=== PATIENT | female | born 1935 | race Caucasian/White ===

== ENCOUNTER 2016-08-10 11:59 | Emergency (ER) | payer MEDICARE, OTHER ==
[~2016-08-10 11:59] MED LIST: ATEN50TA PO; ATOR40TA69 PO; BUPR300T52 PO; DOCU-41 PO; DONE5TAB30 PO; LOSA50TA37 PO; METF1000 PO; OMEP20CA11 PO; ONDA4TAB12 SL; OXYC1TAB24 PO; SERT50TA9 PO
--- NOTE | 2016-08-10 12:03 | ED.REPORT ---
HPI-General Illness Date of Service Aug 10, 2016 ED Provider: Dr. Rosen Patient is an 80 year old female with a history of dementia who reports to the ED via EMS from [facility] complaining of suicidal intent. Patient was belligerent, rude, and verbally inappropriate with staff. Patient does not know where she is or what is going on. Patient states that she wants, "to already" and for everyone to, "leave her alone." Patient wanted to take all her clothes off. Nursing Notes Stated Complaint: SUICIDAL COMMENTS Nursing Notes Reviewed: Yes Allergies: Coded Allergies: No Known Allergies (Verified , 09/25/03) Scheduled Atenolol (Atenolol) 50 Mg Tablet 50 MG PO QPM Atorvastatin Calcium (Atorvastatin Calcium) 40 Mg Tablet 40 MG PO DAILY Bupropion ER (Bupropion ER) 300 Mg Tab.er.24h 300 MG PO QAM Donepezil (Donepezil) 5 Mg Tablet 5 MG PO DAILY Losartan Potassium (Losartan Potassium) 50 Mg Tablet 50 MG PO QPM Metformin (Glucophage) 1,000 Mg Tablet 1,000 MG PO BID Omeprazole (Omeprazole) 20 Mg Capsule.dr 20 MG PO DAILY Quetiapine Fumarate (Seroquel) 25 Mg Tablet 25 MG PO BID 25mg in AM, 50 mg HS Sertraline HCl (Sertraline) 50 Mg Tablet 50 MG PO DAILY Scheduled PRN Docusate Sodium (Colace) 100 Mg Capsule 100 MG PO BID PRN PRN For Constipation Ondansetron ODT (Ondansetron ODT) 4 Mg Tab.rapdis 4 MG SL Q4H PRN PRN For Nausea /Vomiting oxyCODONE-Acetaminophen 5-325 mg (oxyCODONE-Acetaminophen 5-325 mg) 1 Each Tablet 1 TAB PO Q4H PRN PRN For Pain General Time Seen by MD: 12:15 Chief Complaint Other (suicidal intent) Hx Obtained From: Patient Arrived By: Walk-in Sudden in Onset?: Yes Onset Occurred: Just prior to arrival Symptom Duration: Since onset Severity: Current: No pain currently Severity: Maximum: No pain Past Medical History Past Medical History Dementia, bipolar Reports: Diabetes mellitus, Hypertension Past Surgical History Bilat hip replacement Family History noncontributory Smoking History Never Smoker Social History Alcohol Use: Denies alcohol use Drug Use: Denies drug use Other Social History: Good social support, Local resident Ambulatory Status Independent Review of Systems Unable to Obtain ROS Patient condition, Mental status Full Review of Systems Psychiatric: Reports: Suicidal ideation Physical Exam Vital Signs Vital Signs Date Time Temp Pulse Resp B/P Pulse Ox O2 Delivery O2 Flow Rate FiO2 08/10/16 15:11 36.8 74 18 122/59 99 Room Air Pt not cooperative with vital signs. Initial VS: Reviewed General/Constitutional: Awake Alertness: Positive: Confused not cooperative with physical exam. Head / Eyes: Atraumatic, Normocephalic, PERRL Respiratory / Chest: No respiratory distress Neurologic: Gait NL Mental Status: Positive: Confused Moves all extremitities. Interpretation & Diagnostics Lab Results Interpretation Result Diagram: 08/10/16 1245 08/10/16 1245 Test 08/10/16 12:45 08/10/16 15:27 White Blood Count 7.8th/mm3 (3.8-10.1) Red Blood Count 4.47mil/mm3 (3.90-5.20) Hemoglobin 11.0g/dL (12.0-15.6) Hematocrit 35.6% (35.0-46.0) Mean Corpuscular Volume 79.6fL (81-100) Mean Corpuscular Hemoglobin 24.6pg (27.0-35.0) Mean Corpuscular Hemoglobin Concent 30.9% (32.0-37.0) Red Cell Distribution Width 16.4% (12.3-15.4) Platelet Count 439bil/L (150-400) Neutrophils (%) (Auto) 71.5% (40-74) Lymphocytes (%) (Auto) 16.4% (14-46) Monocytes (%) (Auto) 8.4% (4-12) Eosinophils (%) (Auto) 2.4% (0-5) Basophils (%) (Auto) 0.9% (0-3) Sodium Level 140mEq/L (134-144) Potassium Level 4.4mEq/L (3.5-5.2) Chloride Level 99mEq/L (97-108) Carbon Dioxide Level 23mmol/L (18-29) Blood Urea Nitrogen 17mg/dL (8-27) Creatinine 0.89mg/dL (0.57-1.00) Estimat Glomerular Filtration Rate 87mL/min (>59) Glucose Level 162mg/dL (60-99) Calcium Level 9.6mg/dL (8.5-10.1) Total Bilirubin 0.4mg/dL (0.0-1.2) Aspartate Amino Transf (AST/SGOT) 19U/L (0-50) Alanine Aminotransferase (ALT/SGPT) 11U/L (0-32) Alkaline Phosphatase 127U/L (25-165) Total Protein 7.1g/dL (6.4-8.4) Albumin 4.2g/dL (3.4-5.0) Hold Rudd Top Tube Received (Received) Urine Color Straw (YELLOW) Urine Appearance Hazy (CLEAR,HAZY) Urine pH 6.0 (5.0-8.0) Urine Specific [place] 1.010 (1.003-1.035) Urine Protein Negativemg/dL (NEG,TRACE) Urine Glucose (UA) Negativemg/dL (NEGATIVE) Urine Ketones Negativemg/dL (NEGATIVE) Urine Occult Blood Negative (NEGATIVE) Urine Nitrite Negative (NEGATIVE) Urine Bilirubin Negative (NEGATIVE) Urine Urobilinogen Normalmg/dL (NORMAL) Urine Leukocyte Esterase Negative (NEGATIVE) Urine RBC 0-2/hpf (0-2) Urine WBC 0-5/hpf (0-5) Urine Epithelial Cells Few/hpf (NONE-MOD) Urine Crystals None seen (NONE SEEN) Urine Bacteria Many/hpf (NONE-FEW) Urine Hyaline Casts None/lpf (NONE) Urine Granular Casts None seen (NONE SEEN) Urine Waxy Casts None seen (NONE SEEN) Urine Red Blood Cell Casts None seen (NONE SEEN) Urine White Blood Cell Casts None seen (NONE SEEN) Urine Mucus None seen (None Seen) Urine Trichomonas None seen (NONE SEEN) Urine Yeast None (NONE SEEN) Urinalysis Comment None Urine Culture Reflexed Indicated X-Ray Chest Interpretation Chest Xray Interpretation: IMPRESSION: No acute cardiopulmonary findings. Dictated by: Roberta Humphrey M.D. on 08/10/2016 at 14:08 Approved by: Roberta Humphrey M.D. on 08/10/2016 at 14:08 View: Portable Interpretation / Wet Read by: Interpret - Radiologist NL X-Ray Chest Findings: No infiltrate, Normal lung markings, Normal heart size, Normal mediastinum, Normal great vessels, No fracture, Soft tissues normal , No acute disease, No sail sign, NL cardiothymic shadow Re-Eval/Medical Decision Med Decision/Clinical Course 80-year-old dementia patient with bipolar disorder arrives from a monitored care facility after outbursts with reported suicidal ideations. She is easily calmed and subdued after 2 mg of IM Haldol. She does overall seem depressed with a flat affect However after Haldol she is cooperative. Discussion is had with her primary care provider who is in agreement with discharging her back with increasing doses of Seroquel in an outpatient psychiatry referral. This seems reasonable as she does not seem at imminent risk of harm to herself or others given that she is in a monitored care setting. No obvious reversible causes for dementia can be found. Time of Eval: 13:20 Patient Status: Condition unchanged Re-Evaluation/Progress Note: Face to face evaluation. Decided to put pt in a soma bed for her own safety. Pt took her pants off and was rolling around on the floor. Pt at first refused to take seraquil that nurse gave her, then agreed to take it five minutes later. Consultation : Referral / Consult Name: Lenny Rand DO Consulted With: Primary care physician Call Returned at: 15:24 Diet Kitchen Cook: Agrees with plan Note: Dr. Rand ok with sending pt home and increasing seroquel to 25 mg in AM and 50 mg at night, consult spcy at facility. Counseled Regarding: Diagnosis, Lab results, Need for follow-up, When/why to return to ED Discharge & Departure Shift Change Sign-Out Patient Care Transferred: Yes Discussed Complaint(s): Yes Laboratory Evaluation: Lab evaluation discussed Imaging Studies: Imaging discussed Primary Impression: Delirium Disposition: Home Discharge Condition All VS Reviewed: Yes Condition: Stable Referrals: Corona Sandoval MD (PCP) [place] Attestation Portion of this note were transcribed by Vale Hampton and Melanie Shaffer. I, Dr. Rosen personally performed the history, physcial exam, and medical decision- making: I reviewed and confirmed the accuracy for the information in the transcribed note. Signed by: kevin Phillips, 08/03/16 0055 copies to: Corona Sandoval MD, Timothy S DO Aug 10, 2016 12:03 MELANIE SHAFFER Aug 10, 2016 12:33 Vale Hampton Aug 10, 2016 13:33
[2016-08-10] MEDS ORDERED: Haloperidol 5 mg/mL Inj IVPUSH ONE (12:35)
[2016-08-10 12:54] LABS: BASOPHILS % (AUTO) 0.9 % (0-3); EOSINOPHILS % (AUTO) 2.4 % (0-5); MONOCYTES % (AUTO) 8.4 % (4-12); Mean Corpuscular Hemoglobin 24.6 pg (27.0-35.0); Mean Corpuscular Volume 79.6 fL (81-100); NEUTROPHILS % (AUTO) 71.5 % (40-74); Platelet Count 439 bil/L (150-400)
--- NOTE | 2016-08-10 14:10 | DRSVH ---
PROCEDURE: X-RAY CHEST ONE VIEW, PORTABLE ([id number]) INDICATIONS: ALTERED LEVEL OF CONSCIOUSNESS TECHNIQUE: One view of the chest was acquired. COMPARISON: [facility], CR, XR CHEST 1VW (PORTABLE), 07/25/2016, 11:05. FINDINGS: Surgical changes and devices: None. Lungs and pleura: No pleural effusions or pneumothorax. Lungs are clear. Mediastinum: Mediastinal contours appear normal. Heart size is normal. Bones and chest wall: No suspicious bony lesions. Overlying soft tissues appear unremarkable. IMPRESSION: No acute cardiopulmonary findings. Dictated by: Roberta Humphrey M.D. on 08/10/2016 at 14:08 Approved by: Roberta Humphrey M.D. on 08/10/2016 at 14:08
[2016-08-10 15:11] VITALS: BP 122/59; PULSE 74; RESP 18; O2SAT 99
[2016-08-10] MEDS ORDERED: QUET25TA PO (15:39)
[2016-08-10 15:42] LABS: APPEARANCE,URINE HAZY (CLEAR,HAZY); COLOR,URINE STRAW (YELLOW); OCCULT BLOOD,URINE NEGATIVE (NEGATIVE); UROBILINOGEN,URINE NORMAL (NORMAL)
== END 2016-08-10 16:30 | disposition home or self-care (01) ==
LOC: EDUNIT# 11:59 → SED 11:59 → EDBD 11:59 → SED 16:30
DX: R41.0 Disorientation, unspecified (principal); I10 Essential (primary) hypertension; E11.9 Type 2 diabetes mellitus without complications; F03.90 Unspecified dementia, unspecified severity, without behavioral disturbance, psychotic disturbance, mood disturbance, and anxiety; F31.9 Bipolar disorder, unspecified; Z79.84 Long term (current) use of oral hypoglycemic drugs
CPT/HCPCS: 36415; 71010; 80053; 81000; 85025; 87086; 87088; 96374; 99284; J1630

== ENCOUNTER 2016-08-12 17:26 | Observation (INO) | payer MEDICARE, OTHER ==
[~2016-08-12] VITALS: Ht 157.5 cm; Wt 54.5 kg
[2016-08-12 17:26] VITALS: BP 137/51; PULSE 87; RESP 15; O2SAT 96
[~2016-08-12 17:26] MED LIST changes: +QUET25TA PO
--- NOTE | 2016-08-12 18:04 | ED.REPORT ---
HPI-Psychiatric Illness Date of Service Aug 12, 2016 ED Provider: Jitendra Johnson MD History of Present Illness: Patient sent in from [facility] with an affidavit indicating the patient tried to stab herself with a pen and said that she wanted to kill herself. Staff she had nothing else to live for. Pt is an 80 y/o female with history of Alzheimer's, dementia, cognitive deficit , UTI, possible bipolar disorder, depression, and anxiety who is brought to the ED via EMS due to suicidal ideation. Pt was sent from [facility] with in affidavit stating that she "wanted to stab herself with a pen and that she had nothing else to live for." Pt was hostile and suicidal ideation or dysuria. Pt was unaware of the date or her location, and did not remember her previous visit in the ED. She was seen two days ago for agitation and and escalation in Seroquel. She is unable to give a history. See affidavit for further history. Nursing Notes Stated Complaint: CONCERN Chief Complaint: Psychiatric Complaint Nursing Notes Reviewed: Yes (Gift Card Combo not reconciled) Allergies: Coded Allergies: No Known Allergies (Verified , 08/12/16) Scheduled Atenolol (Atenolol) 50 Mg Tablet 50 MG PO QPM Atorvastatin Calcium (Atorvastatin Calcium) 40 Mg Tablet 40 MG PO DAILY Bupropion ER (Bupropion ER) 300 Mg Tab.er.24h 300 MG PO QAM Donepezil (Donepezil) 5 Mg Tablet 5 MG PO DAILY Lactobacillus Combination No.4 (Probiotic) 1 Each Capsule 1 EACH PO DAILY Losartan Potassium (Losartan Potassium) 50 Mg Tablet 50 MG PO QPM Metformin (Glucophage) 1,000 Mg Tablet 1,000 MG PO BID Omeprazole (Omeprazole) 20 Mg Capsule.dr 20 MG PO DAILY Quetiapine Fumarate (Seroquel) 25 Mg Tablet 25 MG PO BID 25mg in AM, 50 mg HS Sertraline HCl (Sertraline) 50 Mg Tablet 50 MG PO DAILY Scheduled PRN Docusate Sodium (Colace) 100 Mg Capsule 100 MG PO BID PRN PRN For Constipation Ondansetron ODT (Ondansetron ODT) 4 Mg Tab.rapdis 4 MG SL Q4H PRN PRN For Nausea /Vomiting oxyCODONE-Acetaminophen 5-325 mg (oxyCODONE-Acetaminophen 5-325 mg) 1 Each Tablet 1 TAB PO Q4H PRN PRN For Pain General Time Seen by MD: 17:43 Chief Complaint Suicidal ideation Hx Obtained From: Patient, EMS Arrived By: Ambulance Onset Occurred: Onset unknown Symptom Duration: Duration unknown Recent Healthcare: Recent doctor visit, Recent hospitalization Similar Sx Previous: Yes Risk-Psychiatric Illness Suicide Risk Stratification Suicide Risk Factors - Adult: No: Access to firearms, Alcohol use, Close associate suicide RF Statements: Risk factors reviewed (not predictive, unable to review 2nd to dementia, unknown if prior psych admit or prior SI) Past Medical History Past Medical History Notes: Admit July 10- for acute delirium & Left hip fracture, UTI > 100,000 Escherichia coli, pansensitive - treated, repeat UA 08/10/16 mixed kelsey Seen in ED 08/10/2016 for agitation and SI, seroquel increased Past Medical History Dementia bipolar (details unclear - on seroquel) Reports: Diabetes mellitus, Hypertension Past Surgical History Bilat hip replacement Family History noncontributory Smoking History Never Smoker Social History Resides at [facility] form dated July 29 2016 indicates DNR and COMFORT CARE Alcohol Use: Denies alcohol use Drug Use: Denies drug use Other Social History: Good social support, Local resident Ambulatory Status Independent Review of Systems Unable to Obtain ROS Mental status Physical Exam Initial Vital Signs Vital Signs (First) Date Time Temp Pulse Resp B/P Pulse Ox O2 Delivery O2 Flow Rate FiO2 08/12/16 17:26 36.9 87 15 137/51 96 Room Air Initial VS: Reviewed, Vital signs normal Head / Eyes: Atraumatic, Normocephalic, PERRL ENT: Mucous membranes moist, Conjunctiva normal, No scleral icterus Neck: Supple, Non-tender, Full range of motion Respiratory: Breath sounds normal, Clear to auscultation, No respiratory distress Cardiovascular: Regular rate & rhythm, Heart sounds normal, Intact distal pulses Extremities: Vascular intact, Neuro intact, No swelling, No tenderness Skin: Warm, Dry, No cyanosis General/Constitutional: Awake, Alert does not appear to be in pain or discomfort no signs of current trauma Neurologic: Speech NL Mental Status: Positive: Disoriented to place, Disoriented to time Abnormal Mood/Affect: Positive: Anxious, Irritable, Pressured speech (with disorganization) Abnormal Thinking / Perception: Positive: Confused (acuity unclear, ho dementia. Can cite , but not current date - baseline unknonw), Insight abnormal, Judgment abnormal, Suicidal, with plan (according to affadivit, does not endorse SI in ED), Negative: Hallucinations, auditory, Hallucinations, tactile, Hallucinations, visual Unable to Evaluate: Positive: Uncooperative (escalates during exam and becomes less cooperative and does not want to converse ("I want to go find my son at [facility]")) Pt is energetic, upright, demented, agitated, patient disorganized with mildly pressured speech Head / Eyes: Atraumatic (no signs of trauma), Normocephalic, PERRL, EOMI, No nystagmus, No periorbital swelling ENT: Atraumatic, Airway patent Respiratory / Chest: Atraumatic, Breath sounds NL, Breath sounds = bilat, No respiratory distress Cardiovascular: Heart rate NL, Regular rhythm, Heart sounds NL Heart Rate / Rhythm: Negative: Tachycardia Lower Ext Edema: Negative: Bilateral 1+ Abdomen: Atraumatic, Soft, Non-tender, No guarding, No rebound Skin: Atraumatic, Color NL, No rash Additional Physical Exam: Patient moves hips without overt clinically evident discomfort (has known L hip fx being managed non-operatively) Lower Extremity / Pelvis / MS: Inspection NL, Non-tender, No erythema Interpretation & Diagnostics Lab Results Interpretation Result Diagram: 08/12/16 18208/12/16 1826 Test 08/12/16 18:26 08/12/16 18:40 White Blood Count 7.4th/mm3 (3.8-10.1) Red Blood Count 4.22mil/mm3 (3.90-5.20) Hemoglobin 10.1g/dL (12.0-15.6) Hematocrit 34.1% (35.0-46.0) Mean Corpuscular Volume 80.8fL (81-100) Mean Corpuscular Hemoglobin 23.9pg (27.0-35.0) Mean Corpuscular Hemoglobin Concent 29.6% (32.0-37.0) Red Cell Distribution Width 16.1% (12.3-15.4) Platelet Count 367bil/L (150-400) Neutrophils (%) (Auto) 70.4% (40-74) Lymphocytes (%) (Auto) 17.8% (14-46) Monocytes (%) (Auto) 7.9% (4-12) Eosinophils (%) (Auto) 3.4% (0-5) Basophils (%) (Auto) 0.4% (0-3) Sodium Level 137mEq/L (134-144) Potassium Level 4.4mEq/L (3.5-5.2) Chloride Level 98mEq/L (97-108) Carbon Dioxide Level 23mmol/L (18-29) Blood Urea Nitrogen 25mg/dL (8-27) Creatinine 0.82mg/dL (0.57-1.00) Estimat Glomerular Filtration Rate 96mL/min (>59) Glucose Level 240mg/dL (60-99) Calcium Level 9.4mg/dL (8.5-10.1) Total Bilirubin 0.2mg/dL (0.0-1.2) Aspartate Amino Transf (AST/SGOT) 13U/L (0-50) Alanine Aminotransferase (ALT/SGPT) 10U/L (0-32) Alkaline Phosphatase 108U/L (25-165) Total Protein 6.9g/dL (6.4-8.4) Albumin 3.8g/dL (3.4-5.0) Thyroid Stimulating Hormone (TSH) 0.540uIU/mL (0.450-4.500) Hold Rudd Top Tube Received (Received) Alcohol, Quantitative < 10mg/dL (0-10) Urine Color Yellow (YELLOW) Urine Appearance Clear (CLEAR,HAZY) Urine pH 5.5 (5.0-8.0) Urine Specific [place] 1.010 (1.003-1.035) Urine Protein Negativemg/dL (NEG,TRACE) Urine Glucose (UA) Negativemg/dL (NEGATIVE) Urine Ketones Negativemg/dL (NEGATIVE) Urine Occult Blood Negative (NEGATIVE) Urine Nitrite Negative (NEGATIVE) Urine Bilirubin Negative (NEGATIVE) Urine Urobilinogen Normalmg/dL (NORMAL) Urine Leukocyte Esterase Negative (NEGATIVE) Urine RBC 0-2/hpf (0-2) Urine WBC 0-5/hpf (0-5) Urine Epithelial Cells Few/hpf (NONE-MOD) Urine Crystals None seen (NONE SEEN) Urine Bacteria None/hpf (NONE-FEW) Urine Hyaline Casts None/lpf (NONE) Urine Granular Casts None seen (NONE SEEN) Urine Waxy Casts None seen (NONE SEEN) Urine Red Blood Cell Casts None seen (NONE SEEN) Urine White Blood Cell Casts None seen (NONE SEEN) Urine Mucus None seen (None Seen) Urine Trichomonas None seen (NONE SEEN) Urine Yeast None (NONE SEEN) Urinalysis Comment None Urine Culture Reflexed Not indicated Lab Results Interpretation: CBC and normal CMP mild hyperglycemia EtOH negative TSH normal UA negative Culture of the urine from 2 days ago was mixed kelsey, no definite pathogens Brain CT -07/23/16 Re-Eval/Medical Decision Med Decision/Clinical Course This is an 80-year-old female [facility] with increased agitation, and specific concern suicidal ideation and danger to self with plan stab herself. Please see this a SNF affidavit. This is a patient who reportedly has a history of bipolar illness, details unclear. She will recently resided in a assisted living facility, but had a fall and was admitted 2 weeks ago for a left periprosthetic hip fracture that did not R surgical intervention, but for which the patient required placement given her needs for physical therapy. At the same time, the patient had an Escherichia coli UTI, pansensitive that was treated. The patient reports that her into the emergency department 2 days ago, with agitation, suicidal ideation. Repeat workup was performed, there was a concern for delirium-lab work was normal, UA was nonspecific and culture revealed only mixed kelsey with no clear pathogens. There are no of trauma or new injury. The [facility] after extensive difficulties by report, is a facility was not comfortable taking the patient back. The PCP was contacted, and the plan was to increase the patient' s Seroquel. Apparently today the patient was more agitated, she attempted this allegedly talk about stabbing herself and wanted to kill herself, and was sent back in. The patient when I go to examine her does not remember any of this. She is initially fairly calm, and the tech who recognized from 2 days ago said she was better now, that she was a few days ago. The patient is alert, answering questions-but is hyperactive, is focused on getting to [facility]-even though she is already at the hospital and does not seem to have any insight that she is here, despite the fact that she will reiterate that she is at the hospital after I tell her current location. She is focused on finding her son, who she claims is hospitalized-but does not know why. She has no insight, no judgment. Her speech is slightly pressured. She is disorganized . I do not get any component that sounds like a hallucination. However the patient's also restless with me, and will not fully cooperate and gets angry at me and escalates restlessness, although she is able to be talked down. She hasno visible signs of trauma. She moves comfortably, she does not appear toxic or ill. She has no focal deficits. Lungs are clear, she is no respiratory findings. Moves her hip without clinically apparent discomfort. And in fact, she gets agitated restless enough that she could try to get out of the gurney and go places-so she ultimately required placement in a somewhat bed. She then escalated to the point of requiring Haldol, as Haldol worked well on her previous visit 2 days ago and worked again today. Repeat labs and urine were obtained and were without marker of medical pathology. The patient is already had a CT scan recently's, she has no focal deficits, I am not finding a clear indication that repeat CT imaging is indicated. The situation is even slightly more, could not fact that the patient has a POLST form indicates a DO NOT RESUSCITATE and comfort care. The patient with agitation, intermittent suicidal ideation, [id number] visits to the emergency department, without an overt clear medical cause. She poorly has a history of bipolar, but is difficult to evaluate given her dementia. she does have slightly pressured speech and some disorganization, so a manic bipolar component is possible. She is already had a medication adjustment but is having worsening symptoms. A DCR evaluation, came by the fact that the patient has just in recent weeks broken her hip, requires physical therapy management (patient is to be protected weightbearing utilizing a toe-touch weightbearing program) while she does not have an acute medical issue today, she has a subacute medical issue complicating any potential psychiatric care. For this reason I think the patient is best served by admission to the medical service, with a consultation to the psychiatrist in the a.m. for further assistance in management. Case has been discussed with the hospitalist and the patient accepted. Source of Hx: Old records Consultation : Referral / Consult Name: Shiv Ford MD Consulted With: Hospitalist Call Returned at: 20:37 Biostatistics Manager: Accepts admit Note: Spoke with Dr. Ford, hospitalist, regarding pt's case. Dr. Ford agrees with the evaluation and agrees to accept the pt. Differential Diagnosis: Positive: Suicidal, Negative: Alcohol abuse, Homicidal, Personality disorder, Polysubstance abuse , Schizophrenia, Substance abuse Counseled Regarding: Diagnosis, Lab results, Need for admission Discharge & Departure Impression: Primary Impression: Agitation Additional Impression: Suicidal ideation Disposition: ADMITTED TO HOSPITAL Discharge Condition All VS Reviewed: Yes Condition: Stable Referrals: Corona Sandoval MD (PCP) Scribe Attestation Portions of this note were transcribed by Florian Medeiros and Júnior Dave I , Dr. Johnson personally performed the history, physical exam and medical decision-making; I reviewed and confirmed the accuracy of the information in the transcribed note. Signed by: Júnior Dave and Shun Post, and 0049. copies to: Corona Sandoval MD, Matthew F MD Aug 12, 2016 18:04 Florian Medeiros Aug 12, 2016 23:04 JÚNIOR DAVE Aug 13, 2016 00:49
[2016-08-12 18:53] LABS: BASOPHILS % (AUTO) 0.4 % (0-3); EOSINOPHILS % (AUTO) 3.4 % (0-5); MONOCYTES % (AUTO) 7.9 % (4-12); Mean Corpuscular Hemoglobin 23.9 pg (27.0-35.0); Mean Corpuscular Volume 80.8 fL (81-100); NEUTROPHILS % (AUTO) 70.4 % (40-74); Platelet Count 367 bil/L (150-400)
[2016-08-12] MEDS ORDERED: Haloperidol 5 mg/mL Inj IM ONE (19:30)
[2016-08-12 20:05] LABS: APPEARANCE,URINE CLEAR (CLEAR,HAZY); COLOR,URINE YELLOW (YELLOW); OCCULT BLOOD,URINE NEGATIVE (NEGATIVE); PH,URINE 5.5 (5.0-8.0); UROBILINOGEN,URINE NORMAL (NORMAL)
[2016-08-12] MEDS ORDERED: LACT1CAP67 PO (22:01)
[2016-08-12] MEDS ORDERED: Ondansetron 2 mg/mL 2 mL Inj IVPUSH PRN (22:55)
[2016-08-12] MEDS ORDERED: Alum-Mag Hydrox-Simeth 30 mL Suspension PO PRN (22:55)
--- NOTE | 2016-08-13 00:17 | NUR ---
Admit Pt arrived to [facility] w/ S Lasha SANZ at 2345 in soma bed. Pt calm, pleasant, responding appropriately and communicating well. Pt oriented to self and place, not agitated in any way. Pt presenting with short term memory loss, oriented to room, immediately forgotten. Overall pt is calm and pleasantly confused at this time.
[2016-08-13 00:33] VITALS: BP 135/72; PULSE 95; RESP 18; O2SAT 93
--- NOTE | 2016-08-13 00:38 | PCM.HPMED ---
Subjective Date of Service Aug 12, 2016 Primary Provider: Admitting Physician: Primary Care Physician: Corona Sandoval MD Attending Physician: Chief Complaint: agitation with threat of self harm and suicidal ideation History of Present Illness: 80-year-old female with past medical history remarkable for dementia and recent left hip fracture presents with ongoing delirium and threats of self injury and suicidal ideation. The patient was brought in from [facility] with a report of agitation or the patient attempted to stab herself with a pin and threats of suicide stating she had "nothing left to live for". Upon meeting the patient she states that she does not remember any events at [facility] and denies explicitly trying to injure herself stating that she is a "Adventist and her god would not like that". The patient denies any suicidal ideation or thoughts of harming herself or others. The patient denies any trouble with coordination, headaches, changes in vision, or ongoing pain at this time. She is unsure of the medications that she is currently taking. She has 2 sons in the area Lobo and Bridger, and states that Lobo has the DURABLE POWER OF FACIALIST but that we may speak with either one of the sons. The patient in late June broke her left hip, after ground level fall, and this injury was recommended to be followed up without surgical intervention she is discharged on 07/29/2016 after treating a urinary tract infection. Notes from that hospitalization describe ongoing delirium on top of previous diagnosis of chronic ongoing dementia, and that the delirium seemed to resolve before discharge. The patient is on medications for dementia including Donepezil, as well as medications for depression including sertraline and bupropion, and medications for agitation including Seroquel twice a day. Reports are that she was unable to be placed in a geriatric psychiatric unit due to her left hip fracture and was instead discharged to [facility]. She was last seen in the [facility] ED on August 10 with altered mental status. Review of Systems: Comprehensive review of systems was attempted and all are negative except for what is included in the history of present illness Allergies Coded Allergies: No Known Allergies (Verified , 08/12/16) Home Medications Atenolol 50 mg every evening Atorvastatin 40 mg daily Bupropion extended release 300 mg daily Donepezil 5 mg daily Losartan 50 mg every evening Metformin 1000 milligrams twice a day Omeprazole 20 mg daily Quetiapine 25 mg twice a day Sertraline 50 mg daily Lactobacillus probiotic Docusate sodium 100mg PRN Ondansetron 4mg PRN Percocet 5-325 mg PRN PMH Diabetes mellitus Hypertension Hyperlipidemia Gastroesophageal reflux disease Dementia Bipolar Admitted July 25 for acute delirium with left hip fracture without surgical intervention and urinary tract infection treated Surgical History Bilateral hip replacement Family History Mother of emphysema Father of emphysema Social History 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 Obama and President Ralf after coaxing. 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 flexion, on flexion of the left hip patient initially states that there was pain and then when addressed immediately afterwards stated that there is no pain and was unable to place a finger on the site of pain Eyes: PERRLA, extraocular motion appears intact however not fluid and when directly testing patient's EOM patient did not perform left inferior eye movement however this motion was seen on tracking, pale conjunctiva HENT: MMM, without central cyanosis, top dentures in place, Neck: trachea midline, no thyromegaly noted CV: RRR, +s1/s2, no s3/s4, soft systolic murmur noted on left sternal boarder, no rubs or gallops Lungs: CTAB, no wheezing rales or rhonchi Abdomen: Normoactive bowel sounds, tympanic to percussion, no organomegally Ext: Pulses intact at radial and dorsalis pedis, no cyanosis clubbing or edema : no perkins in place, adult disposable underwear in place Lab and Diagnostics Result Diagram: 1/14182508/12/161825 Microbiology UA performed in ED was negative for infection X-Rays, CTs and MRIs PROCEDURE: X-RAY CHEST ONE VIEW, PORTABLE ([id number]) IMPRESSION: No acute cardiopulmonary findings. Dictated by: Roberta Humphrey M.D. on 08/10/2016 at 14:08 Approved by: Roberta Humphrey M.D. on 08/10/2016 at 14:08 Assessment & Plan 80-year-old female with past medical history remarkable for dementia and recent left hip fracture presents with ongoing delirium and threats of self injury and suicidal ideation. 1. Agitation/Suicidal Ideation, acute - Patient has a history of dementia on Donepezil, Seroquel, sertraline, and buproprion ER - During last hospitalization July 25-2015 the patient was described as having ongoing agitation and delirium, and report that patient was attempted to be placed in geriatric psychiatric unit however due to hip fracture was unable to be placed - medical team should contact Psychiatry tomorrow for evaluation - received Haldol 2mg IM in ED, we will keep Haldol 1-2mg IM available when necessary for agitation overnight, the patient seems to tolerate Haldol well currently - will avoid benzodiazepines for agitation in the elderly - Continue outpatient medication tomorrow 2. left nondisplaced periprosthetic proximal femur fracture, present prior to admission, stable - per ortho reports from last hospitalization "Nonoperative treatment involving protected weightbearing utilizing a toe-touch weightbearing program for approximately six weeks will likely yield a good outcome." - patient denies pain with active non weightbearing movement when last checked - Percocet 5-325mg available PRN - PT consulted for evaluation 3. Diabetes mellitus type 2, chronic - Patient was treated as an outpatient with 1000 mg by mouth twice a day - Patient to be placed on a correction scale subcutaneous insulin while in hospital - it data architect consulted from ED, likely start diabetic diet in AM 4. Hypertension, chronic - Atenolol 50 mg at night - Losartan 50mg at night - will hold medication tonight and restart medication tomorrow currently scheduled in the PM, may need to restart earlier depending on vitals 5. Hyperlipidemia, chronic - Atorvastatin 40 mg daily - We will hold medication tonight and restart medication tomorrow 6. GERD, chronic - Omeprazole 20 mg daily - Pepcid 20mg BID to start tomorrow - We will hold medication and start ranitidine tomorrow, some studies show PPIs increased risk of delirium in elderly 7. anemia, likely chronic - Low MCV likely due to iron deficiency - anemia panel ordered for AM According to POLST form dated July 29, 2017 patient is DO NOT RESUSCITATE and comfort care measures only DPOA is jorge alberto Diamond, patient gives consent for discussion Bridger. Disposition: Patient is admitted for observation status with likely stay less than to midnight, barriers to discharge include placement in geriatric psychiatric facility given left hip fracture, PT consulted to give placement recommendations. GI Prophylaxis: H2 rosalio VTE Prophylaxis: SCDs Resuscitation Status: DNR/DNI:Do Not Resuscitate/Intubate Attending Statement The patient was seen and examined together with Dr. Gallagher on 08/12 and I agree with the history, exam and plan as outlined in the note above. ELISA GALLAGHER DO Aug 12, 2016 23:23 Shiv Ford MD Aug 13, 2016 06:08
[2016-08-13] MEDS ORDERED: Glucose 40% Oral Gel 15 Gm Tube PO PRN (00:50)
[2016-08-13] MEDS: oxyCODONE-Acetamin 5-325 mg Tablet PO PRN ×4 (03:01→20:01)
--- NOTE | 2016-08-13 03:52 | NUR ---
Assessment refusal / Male Caregiver Reported from ED that patient refused care from male staff. Pt was compliant with assessment other than skin assessment. Per MARCELLUS kay no apparent skin issues noted when toileting. Pt has good strength and moves self very well, good edna score.
[2016-08-13 04:33] VITALS: BP 127/65; PULSE 92; RESP 16; O2SAT 95
[2016-08-13 08:07] VITALS: BP 135/57; PULSE 84; RESP 16; O2SAT 94
[2016-08-13] MEDS: buPROPion XL 300 mg ER24 Tablet PO SCH (08:23)
[2016-08-13] MEDS: Insulin LISPRO 300 Unit/3 mL Inj SUBQ SCH ×4 (09:21→22:00)
--- NOTE | 2016-08-13 11:06 | NUR ---
Evaluation completed. Please go to "Notes" then click on "Assessments and Notes" (bottom left corner of screen). Then select appropriate discipline tab on top of screen.
--- NOTE | 2016-08-13 14:45 | NUR ---
Observation information explained over phone to pt's son Lobo. Brochures left at bedside. I provided Candi GARCIA's phone number since he had questions about her placement and if facility was going to accept her back.
--- NOTE | 2016-08-13 15:04 | PCM.PNMED ---
Subjective Date of Service Aug 13, 2016 Subjective She is confused but pleasant, lying in a SOMA bed this morning. She says the be makes her feel crowded. She has no left hip pain. Exam Vital Signs Vital Sign - Last Date Time Temp Pulse Resp B/P Pulse Ox O2 Delivery O2 Flow Rate FiO2 08/13/16 04:33 36.8 92 16 127/65 95 Room Air Exam Confused and disoriented Pleasant and has no memory of admission events No signs of self harm or intent Heart: RRR no murmur Lungs: CTAB Ext: No ankle edema. Normal ROM of left hip without tenderness IVs and Medications Medications Reviewed: Medications were reviewed in detail Lab and Diagnostics Result Diagram: 08/12/16182508/12/161825 Microbiology UA performed in ED was negative for infection X-Rays, CTs and MRIs PROCEDURE: X-RAY CHEST ONE VIEW, PORTABLE ([id number]) IMPRESSION: No acute cardiopulmonary findings. Dictated by: Roberta Humphrey M.D. on 08/10/2016 at 14:08 Approved by: Roberta Humphrey M.D. on 08/10/2016 at 14:08 Assessment & Plan 80-year-old female with past medical history remarkable for dementia and recent left hip fracture presented yesterday with ongoing delirium and threats of self injury and suicidal ideation. 1. Agitation/Suicidal Ideation, acute - Patient has a history of dementia on Donepezil, Seroquel, sertraline, and buproprion ER - During last hospitalization July 25-2015 the patient was described as having ongoing agitation and delirium, and report that patient was attempted to be placed in geriatric psychiatric unit however due to hip fracture was unable to be placed - No need for Psych assistance so far. - received Haldol 2mg IM in ED, we will keep Haldol 1-2mg IM available when necessary for agitation overnight, the patient seems to tolerate Haldol well currently - will avoid benzodiazepines for agitation in the elderly - Continue outpatient medication tomorrow 2. left nondisplaced periprosthetic proximal femur fracture, present prior to admission, stable - per ortho reports from last hospitalization "Nonoperative treatment involving protected weightbearing utilizing a toe-touch weightbearing program for approximately six weeks will likely yield a good outcome." - patient denies pain with active non weightbearing movement when last checked - Percocet 5-325mg available PRN - PT consulted for evaluation 3. Diabetes mellitus type 2, chronic - Patient was treated as an outpatient with Metformin 1000 mg by mouth twice a day - Patient to be placed on a correction scale subcutaneous insulin while in hospital - software integration developer consulted from ED, likely start diabetic diet in AM, and resume Metformin 4. Hypertension, chronic - Atenolol 50 mg at night - Losartan 50mg at night 5. Hyperlipidemia, chronic - Atorvastatin 40 mg daily 6. GERD, chronic - Omeprazole 20 mg daily - Pepcid 20mg BID to start tomorrow - We will hold medication and start ranitidine tomorrow, some studies show PPIs increased risk of delirium in elderly 7. anemia, likely chronic - Low MCV likely due to iron level of 31 with 11% saturation According to POLST form dated July 29, 2017 patient is DO NOT RESUSCITATE and comfort care measures only DPOA is jorge alberto Diamond, patient gives consent for discussion Bridger. Disposition: Patient is admitted for observation status with likely stay less than two midnights, barriers to discharge include placement in geriatric psychiatric facility given left hip fracture, PT consulted to give placement recommendations. The most likely outcome is a return to [facility] soon. She will be taken out of the [facility] bed today. No sitter needed so far. GI Prophylaxis: H2 rosalio VTE Prophylaxis: SCDs Resuscitation Status: DNR/DNI:Do Not Resuscitate/Intubate Jennifer Alonso MD Aug 13, 2016 07:33
--- NOTE | 2016-08-13 15:25 | NUR ---
Behavior Pt became increasingly anxious, restless, and agitated as the day went on. Pt was very focused on calling her son and telling him to "go to hell". She repeatedly attempted to get out of bed without assistance. She was attempting to call her son repeatedly. She believed that she was being "incarcerated". Frequent reorientation by staff did not appear helpful. Doctor was paged and an order for PO haldol was obtained. Addendum: 08/13/16 at 1747 by NINA HART RN 1mg of PO haldol was given at 1545 with good effect. Pt's mood improved and she was able to be redirected, also less restless. Will continue to monitor.
--- NOTE | 2016-08-13 15:36 | CONS ---
[address] [address] CONSULTATION REPORT PATIENT: KUMAR BARBER : 1935 MR#: [id number] ADMIT: 08/12/2016 JOB ID: [id number] DATE OF SERVICE: 08/13/2016 IDENTIFICATION: The patient is an 80-year-old white female. She has two grown sons, Lobo and Brigder; Lobo is the power of workers compensation attorney. She has been staying at [facility] since having hip fracture repair. Her home is in [place]. REASON FOR ADMISSION: Client transferred from [facility] to the ER for acute agitation and making suicidal statements that she wanted to stab herself. HISTORY OF PRESENT ILLNESS: I met with the patient for a 45 minute evaluation and reviewed course and records kept by [facility]. I was consulted in reference to client's suicidal statements and recommendations for medication management. Client was calm and had no memory of either agitation or suicidal statements. She stated that she was hoping that her medications, Wellbutrin and Zoloft, could be discontinued as she states they make her anxious. At present she was denying all symptoms. It is unclear what the recent trigger was for the presenting problems. She was given 2 mg of Haldol in the emergency department. Client currently has no signs of emotional liability. Her reality testing is intact and she is showing relatively good judgment and insight. She has moderate cognitive deficits, with severe impairment in short-term memory. Client denied psychiatric review of systems for depression, janessa, psychosis, anxiety, trauma, or substance abuse. Client has been treated with a combination of four different medications; Wellbutrin, Zoloft, Seroquel, and donepezil. She is complaining of anxiety and agitation on this combination. PAST MEDICAL HISTORY: MEDICATIONS: 1. Wellbutrin ER 300 mg q.a.m. 2. Donepezil 5 mg daily. 3. Seroquel 25 b.i.d. 4. Zoloft 50 daily. 5. Metformin. 6. Losartan. ALLERGIES: None. ILLNESSES: Diabetes mellitus, hypertension, left hip fracture. FAMILY MEDICAL HISTORY: Noncontributory. PAST PSYCHIATRIC HISTORY: Bipolar disorder. PSYCHOSOCIAL: Born in [place], [place] and raised in [place]. She states she went through high school to her senior year and got . TRAUMA: Client denies. DRUG AND ALCOHOL: Client denies. LETHALITY: Client denies previous suicide attempts. RELATIONSHIP HISTORY: Client states she was at 18 and was for 52 years. She stated her three years ago. QUAKER: Freddie centered, Bible based. LEGAL HISTORY: None. VITAL SIGNS: 135/57, pulse 84, respirations 16, afebrile. PHYSICAL EXAMINATION: Well hydrated and well developed, in no acute distress. Lying comfortably in her hospital bed. LABORATORY: CBC, liver, electrolytes, thyroid, and UA all normal except for glucose elevated at 246. Recent CT exam was essentially normal. MENTAL STATUS EXAMINATION: Client neatly and stylishly dressed. Good eye contact. Calm and cooperative. She was very animated, relaxed, and easy to engage. Her speech was normal rate and rhythm. Mood was euthymic. Affect congruent. Normal intensity. Thought process: Client had a difficult time relating a coherent history due to significant gaps in memory. However, she was generally logical and spontaneous, and able to appreciate both simple and complex abstractions. No signs of psychosis. Thought content: Significant for themes of wanting to take care of herself and know what medical decisions are being made. Denied suicidal ideation, plan, or intent. Denied psychotic symptoms. Client was alert and oriented to person and place, but not to date. Significant impairment in immediate and short-term memory. Remote memory intact. Attention and concentration relatively normal. Client had a difficult time with serial subtractions of 100 by 3. Insight and judgment at this time is fair; per recent history has been poor over the past 24 hours. Impulse control: Highly contained. Again, per reports, has been poor over the past 24 hours. Reality testing intact. Competence to handle current stressors was appropriate. IMPRESSION: The patient is an 80-year-old white female who has been three years. She describes feeling lonesome but denies other psychiatric review of systems for depression or suicidal ideation. She is concerned about her Wellbutrin and Zoloft, feeling that they make her too nervous. She does not remember why she is on Seroquel. She is basically asking to be taken off all medications at this time. The client does have several medical problems but they appeared to be well managed. It is hard to say what happened at [facility] last time but it sounds like this was more of a sundowning episode that escalated to threats of suicide. DIAGNOSIS: [place] I: 1. Neurocognitive disorder, moderate. 2. Depression, unspecified. [place] II: Deferred. [place] III: Diabetes mellitus, hypertension, left hip fracture in June. [place] IV: Moderate. [place] V: Current Global Assessment of Functioning equal to 40. PLAN: There are different theories on how to approach patients with depression, dementia, and psychosis. One approach is to use both a neuroleptic and an antiparkinson drug and low-dose benzodiazepines and anticholinergics. I would be inclined to try to minimize the medication load by changing Seroquel to 25 h.s., dropping the Wellbutrin ER to 225 per day, discontinuing p.r.n. Haldol, and using low-dose Xanax 0.25 q.4 h. as a p.r.n. level for agitation and anxiety. The patient will likely respond most significantly to a sense of safety, structure, and active adult engagement. It is possible that she is having agitation due to the combination of Wellbutrin and Zoloft. It is also possible she is having agitation due to not being in her normal home environment. Today is my final day. I will pass off to Dr. Roldan, to have him follow up. Thank you for a very interesting consult with a delightful patient.
[2016-08-13 15:47] VITALS: BP 129/67; PULSE 85; RESP 16; O2SAT 96
--- NOTE | 2016-08-13 15:52 | NUR ---
Social Work Note: Mental Health Evaluation Patient Name/Info: Kristen Klein is a 80 year old female under observation for dementia, left hip fracture and suicidal ideation. YOKO met with pt at bedside for mental health evaluation, SW role explained. Due to pt diagnosis of dementia, YOKO also contacted pt son Lobo and RN at [facility] for further information and hx. Reason for Hospital Visit: Pt was brought in after making suicidal statements at her detention facility and attempting to stab herself with a pen per ED documentation. Per ED summary notes, pt continued to express suicidal ideation and was agitated. Pt was recently in the ED two days ago where her prescribed dosage of Seroquel was increased after coordination with her PCP and she was discharged back to her detention facility [facility]. YOKO spoke with UMU Coombs at [facility] who explained pt behavior was getting worse over the past five days, however she became more aggressive before lunch yesterday morning (08/12/2016). [facility] RN explained pt began to grab other residents, twisting their arms and not letting go. Pt was making statements such as "I want to , she had a pen and was going to stab herself in the arm." UMU Coombs reports that pt was requesting to see her son and when pt son Lobo arrived at the facility, the moment she saw him she went off stating that he was going to kill her. UMU Coombs reports that when pt has an episodes similar to this, "she wont eat, drink take any medications and becomes paranoid we are trying to poison her." YOKO spoke to pt son Lobo ( [phone]) who explained that pt making suicidal statements Is not new and happens periodically and then she forgets she makes the statements shortly after. However, pt has been making threats toward her son and pt son feels like he is a trigger toward her and explained if [facility] does not accept her back, he is unable to take her into his own home due to his own safety concerns for himself and for the pt. Pt explained he is concerned for pt safety but is unsure if he believes she should be psychiatrically hospitalized. Current Mental Status/ADL: YOKO met with pt at bedside. Pt was lying in bed resting. Pt explained that she was "very tired, from doing nothing". Pt is oriented to self and place but was unsure about the date or the time. Pt has no recollection of being at a detention facility and believes she lives in [place] alone and that is where she was at prior to this hospitalization. Pt questioned why she was in the hospital, when asked if she had any idea of why she was in the hospital, pt explained she had a hip fracture. Pt denied any current suicidal ideation or thoughts of harming herself or others. When asked if pt remembered making any suicidal statements or trying to harm herself with a pen, pt explained "I don't have any idea to hurt myself, I don't know who gets that idea." Pt reports "I am in a good mood, I feel fine". Pt reports a good appetite, referencing having just had "a very good lunch". Pt continued to report feeling very tired throughout the evaluation. Pt was appropriate in speech and eye contact. Despite reporting feelings of tiredness, pt seemed very energetic and requested to get out of bed and walk around on multiple occasions. Psychiatric History/Treatment: SW contacted the [facility] for [facility]. [facility] explained they have no record of pt. Pt has been seen by ED RADIATION OFFICER last year for suicidal ideation after an overdose of her medications. Pt denied current suicidal ideation at time of interview. Per [facility] Jessica Camarena RN and pt son, pt occasionally makes statements of wanting to or harm or self and others, but after calming down, does not recall any of the statements and denies any suicidal ideation. Pt otherwise has not had any inpt psychiatric hospitalizations. Pt psychiatric medications have been managed by her outpt PCP. Chemical Dependency History/Treatment/Tox Screen: N/A Legal History/Assaultive Behavior/Violence History: N/A Suicide Risk/Risk Precautions/Weapons: Pt currently does not have access to any weapons or medications. Pt denies any current suicidal ideation, however, this changes in during times of agitation and confusion. Disposition /Plan: Pt is currently denying any suicidal ideation, thoughts of harming herself or others and is displaying appropriate behaviors. Pt does not meet criteria for involuntary hospitalization at this time. SW to continue to follow for any changes in pt behavior, or pt begins to express suicidal ideation again. Per MD in morning rounds, psych evaluation has been ordered for mediation reconciliation. Pt to be evaluated by psychiatrist for medication adjustments prior to being discharged back to [facility] for continued Physical therapy rehab. Pt son Lobo/DPPANDA is agreeable to plan, but does emphasize that if [facility] does not take pt back, he is unable to take her into his home. SW to connect with [facility] admissions staff tomorrow regarding pt return after psych consultation. SW to continue to follow. Crisis Line Referral : N/A Mental Health Treatment Options for Minor Children: n/a RADHA Zarco
[2016-08-13 19:58] VITALS: BP 150/70; PULSE 98; RESP 16; O2SAT 94
[2016-08-14 00:13] VITALS: BP 106/59; PULSE 90; RESP 14; O2SAT 97
[2016-08-14 05:06] VITALS: PULSE 69; RESP 16; O2SAT 97
--- NOTE | 2016-08-14 06:34 | NUR ---
Shift Report Assumed pt care at 1900, baseline confusion, redirectable, c/o hip pain, medicated with PRN percocet and one time oxycodone order, also applied K pad, with notable relief, no behaviors/restlessness tonight.
[2016-08-14 08:00] VITALS: BP 150/61; PULSE 77; RESP 16; O2SAT 97
[2016-08-14] MEDS: buPROPion XL 300 mg ER24 Tablet PO SCH (08:15)
[2016-08-14] MEDS: oxyCODONE-Acetamin 5-325 mg Tablet PO PRN ×3 (08:16→20:07)
[2016-08-14] MEDS: Insulin LISPRO 300 Unit/3 mL Inj SUBQ SCH ×4 (08:17→20:21)
[2016-08-14 10:07] LABS: Mean Corpuscular Volume 80.8 fL (81-100)
--- NOTE | 2016-08-14 10:31 | NUR ---
Wound Care Wound evaluation for right foot wound received. Pt seen at bedside, pleasant and conversant. Inspection reveals no wounds on right or left foot. She does have what looks like a healed abrasion at the anterior ankle. No wound care needs at this time.
[2016-08-14] MEDS: ALPRAZolam 0.25 mg Tablet PO PRN ×3 (12:13→22:11)
[2016-08-14] MEDS ORDERED: QUET25TA73 PO (12:53)
[2016-08-14] MEDS ORDERED: Bupropion Hcl PO (12:53)
[2016-08-14] MEDS ORDERED: BUPR150T8 PO (12:53)
[2016-08-14] MEDS ORDERED: ALPR0.254 PO (12:53)
--- NOTE | 2016-08-14 12:57 | PCM.DIMED ---
Discharge Instructions Date of Service Aug 14, 2016 Dates of Hospitalization Aug 12, 2016 at 23:20 Discharge Diagnosis Discharge Diagnosis Agitation suicidal ideation; Chronic Nondisplaced left hip fracture Activity Other (as per the physical therapy staff at [facility].) Patient Instructions Nonoperative treatment involving protected weightbearing utilizing a toe-touch weightbearing program for approximately six weeks from initial time of fracture. Medications were adjusted by the psychiatry netsuite consultant. He encourages observation with current medication regimen as well as supportive and structured psychological engagement by staff at the halfway facility. Follow-up Provider: Lenny Rand DO Follow-up with PCP in: 1 week Dustin Berry MD Aug 14, 2016 12:56
--- NOTE | 2016-08-14 13:05 | PCM.DC.MED ---
Discharge Summary Date of Service Aug 14, 2016 Dates of Hospitalization Date of Hospital Admission Aug 12, 2016 at 23:20 Date of Discharge: Aug 14, 2016 Providers: Admitting Physician: Shiv Ford MD Primary Care Physician: Corona Sandoval MD Attending Physician: Shiv Ford MD Diagnosis at Time of Discharge Diagnosis at Time of Discharge Agitation suicidal ideation; Chronic Nondisplaced left hip fracture Consultations Psychiatry: IMPRESSION: The patient is an 80-year-old white female who has been three years. She describes feeling lonesome but denies other psychiatric review of systems for depression or suicidal ideation. She is concerned about her Wellbutrin and Zoloft, feeling that they make her too nervous. She does not remember why she is on Seroquel. She is basically asking to be taken off all medications at this time. The client does have several medical problems but they appeared to be well managed. It is hard to say what happened at [facility] last time but it sounds like this was more of a sundowning episode that escalated to threats of suicide. DIAGNOSIS: Haywood I: 1. Neurocognitive disorder, moderate. 2. Depression, unspecified. Haywood II: Deferred. Haywood III: Diabetes mellitus, hypertension, left hip fracture in June. Haywood IV: Moderate. Haywood V: Current Global Assessment of Functioning equal to 40. PLAN: There are different theories on how to approach patients with depression, dementia, and psychosis. One approach is to use both a neuroleptic and an antiparkinson drug and low-dose benzodiazepines and anticholinergics. I would be inclined to try to minimize the medication load by changing Seroquel to 25 h.s., dropping the Wellbutrin ER to 225 per day, discontinuing p.r.n. Haldol, and using low-dose Xanax 0.25 q.4 h. as a p.r.n. level for agitation and anxiety. The patient will likely respond most significantly to a sense of safety, structure, and active adult engagement. It is possible that she is having agitation due to the combination of Wellbutrin and Zoloft. It is also possible she is having agitation due to not being in her normal home environment. Moise Sharma MD 08/13/16 1312 Procedures XRay, CTs & MRIs PROCEDURE: X-RAY CHEST ONE VIEW, PORTABLE ([id number]) IMPRESSION: No acute cardiopulmonary findings. Dictated by: Roberta Humphrey M.D. on 08/10/2016 at 14:08 Approved by: Roberta Humphrey M.D. on 08/10/2016 at 14:08 Brief History 80-year-old female with past medical history remarkable for dementia and recent left hip fracture presents with ongoing delirium and threats of self injury and suicidal ideation. The patient was brought in from [facility] [place] with a report of agitation or the patient attempted to stab herself with a pin and threats of suicide stating she had "nothing left to live for". Upon meeting the patient she states that she does not remember any events at [facility] and denies explicitly trying to injure herself stating that she is a "[employer]ec[employer]al and her god would not like that". The patient denies any suicidal ideation or thoughts of harming herself or others. The patient denies any trouble with coordination, headaches, changes in vision, or ongoing pain at this time. She is unsure of the medications that she is currently taking. She has 2 sons in the area Lobo and Bridger, and states that Lobo has the DURABLE POWER OF PARKING STATION ATTENDANT but that we may speak with either one of the sons. The patient in late June broke her left hip, after ground level fall, and this injury was recommended to be followed up without surgical intervention she is discharged on 07/29/2016 after treating a urinary tract infection. Notes from that hospitalization describe ongoing delirium on top of previous diagnosis of chronic ongoing dementia, and that the delirium seemed to resolve before discharge. The patient is on medications for dementia including Donepezil, as well as medications for depression including sertraline and bupropion, and medications for agitation including Seroquel twice a day. Reports are that she was unable to be placed in a geriatric psychiatric unit due to her left hip fracture and was instead discharged to [facility] [place]. She was last seen in the [facility] ED on August 10 with altered mental status. Hospital Course 80-year-old female with past medical history remarkable for dementia and recent left hip fracture presented yesterday with ongoing delirium and threats of self injury and suicidal ideation. 1. Agitation/Suicidal Ideation, acute - Medications revised as per psychiatry consult note - No active suicidal intent or gesture - No sitter required - Affect generally well composed prior to discharge - Outpatient PCP follow-up regarding overall behavioral pattern under new medication regimen 2. left nondisplaced periprosthetic proximal femur fracture, present prior to admission, stable - per ortho reports from last hospitalization "Nonoperative treatment involving protected weightbearing utilizing a toe-touch weightbearing program for approximately six weeks will likely yield a good outcome." - patient denies pain with active non weightbearing movement when last checked - Percocet 5-325mg available PRN - To continue physical therapy at [facility] 3. Diabetes mellitus type 2, chronic - Patient was treated as an outpatient with Metformin 1000 mg by mouth twice a day - To continue usual care 4. Hypertension, chronic - Atenolol 50 mg at night - Losartan 50mg at night 5. Hyperlipidemia, chronic - Atorvastatin 40 mg daily 6. GERD, chronic - Omeprazole 20 mg daily 7. anemia, likely chronic - Low MCV likely due to iron level of 31 with 11% saturation According to POLST form dated July 29, 2017 patient is DO NOT RESUSCITATE and comfort care measures only DPOA is son Lobo, patient gives consent for discussion Bridger. Disposition: Patient was admitted for observation status. Exam Vital Signs (Last) Date Time Temp Pulse Resp B/P Pulse Ox O2 Delivery O2 Flow Rate FiO2 08/14/16 08:00 36.8 77 16 150/61 97 Room Air Exam General: Pale-appearing elderly woman in no acute distress HEENT: sclerae anicteric Chest: clear to auscultation Cardiac: S1S2, regular Abdomen: non-tender Extremities: No edema Neuro: Affect calm, Conversant but confused, cranial nerves symmetric, movements show no focal deficits Test 08/12/16 18:26 08/12/16 18:40 08/13/16 07:58 08/14/16 09:35 Neutrophils (%) (Auto) 70.4% (40-74) Lymphocytes (%) (Auto) 17.8% (14-46) Monocytes (%) (Auto) 7.9% (4-12) Eosinophils (%) (Auto) 3.4% (0-5) Basophils (%) (Auto) 0.4% (0-3) Sodium Level 137mEq/L (134-144) Potassium Level 4.4mEq/L (3.5-5.2) Chloride Level 98mEq/L (97-108) Carbon Dioxide Level 23mmol/L (18-29) Blood Urea Nitrogen 25mg/dL (8-27) Creatinine 0.82mg/dL (0.57-1.00) Estimat Glomerular Filtration Rate 96mL/min (>59) Glucose Level 240mg/dL (60-99) Calcium Level 9.4mg/dL (8.5-10.1) Total Bilirubin 0.2mg/dL (0.0-1.2) Aspartate Amino Transf (AST/SGOT) 13U/L (0-50) Alanine Aminotransferase (ALT/SGPT) 10U/L (0-32) Alkaline Phosphatase 108U/L (25-165) Total Protein 6.9g/dL (6.4-8.4) Albumin 3.8g/dL (3.4-5.0) Thyroid Stimulating Hormone (TSH) 0.540uIU/mL (0.450-4.500) Hold Rudd Top Tube Received (Received) Alcohol, Quantitative < 10mg/dL (0-10) Urine Color Yellow (YELLOW) Urine Appearance Clear (CLEAR,HAZY) Urine pH 5.5 (5.0-8.0) Urine Specific Kenvil 1.010 (1.003-1.035) Urine Protein Negativemg/dL (NEG,TRACE) Urine Glucose (UA) Negativemg/dL (NEGATIVE) Urine Ketones Negativemg/dL (NEGATIVE) Urine Occult Blood Negative (NEGATIVE) Urine Nitrite Negative (NEGATIVE) Urine Bilirubin Negative (NEGATIVE) Urine Urobilinogen Normalmg/dL (NORMAL) Urine Leukocyte Esterase Negative (NEGATIVE) Urine RBC 0-2/hpf (0-2) Urine WBC 0-5/hpf (0-5) Urine Epithelial Cells Few/hpf (NONE-MOD) Urine Crystals None seen (NONE SEEN) Urine Bacteria None/hpf (NONE-FEW) Urine Hyaline Casts None/lpf (NONE) Urine Granular Casts None seen (NONE SEEN) Urine Waxy Casts None seen (NONE SEEN) Urine Red Blood Cell Casts None seen (NONE SEEN) Urine White Blood Cell Casts None seen (NONE SEEN) Urine Mucus None seen (None Seen) Urine Trichomonas None seen (NONE SEEN) Urine Yeast None (NONE SEEN) Urinalysis Comment None Urine Culture Reflexed Not indicated Iron Level 31ug/dL (35-150) Total Iron Binding Capacity 270ug/dL (250-450) Percent Iron Saturation 11%sat (15-50) Unsaturated Iron Binding 239.0ug/dL Ferritin 37ng/mL (13-150) White Blood Count 5.9th/mm3 (3.8-10.1) Red Blood Count 3.96mil/mm3 (3.90-5.20) Hemoglobin 9.5g/dL (12.0-15.6) Hematocrit 32.0% (35.0-46.0) Mean Corpuscular Volume 80.8fL (81-100) Mean Corpuscular Hemoglobin 24.0pg (27.0-35.0) Mean Corpuscular Hemoglobin Concent 29.7% (32.0-37.0) Red Cell Distribution Width 16.2% (12.3-15.4) Platelet Count 326bil/L (150-400) Microbiology Results UA performed in ED was negative for infection Discharge Medications Discharge Medications ([Bupropion Hcl]) 75 MG TABLET 75 MG PO DAILY@2029 Prescribed by: BOOM MENDEZ MD Atenolol (Atenolol) 50 Mg Tablet 50 MG PO QPM (Reported) Atorvastatin Calcium (Atorvastatin Calcium) 40 Mg Tablet 40 MG PO DAILY ( Reported) Bupropion ER (Wellbutrin SR) 150 Mg Tablet.er 150 MG PO DAILY Prescribed by: BOOM MENDEZ MD Donepezil (Donepezil) 5 Mg Tablet 5 MG PO DAILY (Reported) Lactobacillus Combination No.4 (Probiotic) 1 Each Capsule 1 EACH PO DAILY Prescribed by: JOSE RAMOS MD Losartan Potassium (Losartan Potassium) 50 Mg Tablet 50 MG PO QPM (Reported) Metformin (Glucophage) 1,000 Mg Tablet 1,000 MG PO BID (Reported) Omeprazole (Omeprazole) 20 Mg Capsule.dr 20 MG PO DAILY (Reported) Quetiapine Fumarate (Quetiapine Fumarate) 25 Mg Tablet 25 MG PO HS Prescribed by: BOOM MENDEZ MD As needed Alprazolam (Alprazolam) 0.25 Mg Tablet 0.25 MG PO Q4 PRN PRN For Anxiety or distress Prescribed by: BOOM MENDEZ MD Docusate Sodium (Colace) 100 Mg Capsule 100 MG PO BID PRN PRN For Constipation ( Reported) Ondansetron ODT (Ondansetron ODT) 4 Mg Tab.rapdis 4 MG SL Q4H PRN PRN For Nausea /Vomiting Prescribed by: PRICE WHITFIELD MD oxyCODONE-Acetaminophen 5-325 mg (oxyCODONE-Acetaminophen 5-325 mg) 1 Each Tablet 1 TAB PO Q4H PRN PRN For Pain Prescribed by: PRICE WHITFIELD MD Followup Plan Disposition: Return to [facility] Discharge Activity: Other (as per the physical therapy staff at [facility].) Patient Instructions Nonoperative treatment involving protected weightbearing utilizing a toe-touch weightbearing program for approximately six weeks from initial time of fracture. Medications were adjusted by the psychiatry knowledge management consultant. He encourages observation with current medication regimen as well as supportive and structured psychological engagement by staff at the nursing home facility. Follow-up Provider: Lenny Rand DO Follow-up with PCP in: 1 week Time spent 25 minutes copies to: Lenny Rand Jeffrey W MD Aug 14, 2016 13:05
--- NOTE | 2016-08-14 15:28 | PCM.PNMED ---
Subjective Date of Service Aug 14, 2016 Subjective 80-year-old female with past medical history remarkable for dementia and recent left hip fracture presented yesterday with ongoing delirium and threats of self injury and suicidal ideation. She is alert and present today. She has no complaints. She is moderately cognitively impaired. She does not voice depressive symptoms today and denies feelings of self-harm. Exam Vital Signs Vital Sign - Last Date Time Temp Pulse Resp B/P Pulse Ox O2 Delivery O2 Flow Rate FiO2 08/14/16 08:00 36.8 77 16 150/61 97 Room Air Intake and Output 08/13/16 08/13/16 08/14/16 Cumulative From/Thru 15:00 23:00 07:00 08/12/16 17:26 - 08/14/16 05:35 Intake Total 720 ml 250 ml 970 ml Output Total 400 ml 350 ml 750 ml Balance 320 ml -100 ml 220 ml Intake Oral 720 ml 250 ml 970 ml Output Urine Total 400 ml 350 ml 750 ml # Voids 1 3 # Bowel Movements 3 3 Exam General: Pale-appearing elderly woman in no acute distress HEENT: sclerae anicteric Chest: clear to auscultation Cardiac: S1S2, regular Abdomen: non-tender Extremities: No edema Neuro: Affect calm, Conversant but confused, cranial nerves symmetric, movements show no focal deficits IVs and Medications Medications Reviewed: Medications were reviewed in detail Lab and Diagnostics Result Diagram: 08/14/16 0935 08/12/16 1826 Microbiology UA performed in ED was negative for infection X-Rays, CTs and MRIs PROCEDURE: X-RAY CHEST ONE VIEW, PORTABLE ([id number]) IMPRESSION: No acute cardiopulmonary findings. Dictated by: Roberta Humphrey M.D. on 08/10/2016 at 14:08 Approved by: Roberta Humphrey M.D. on 08/10/2016 at 14:08 Assessment & Plan 1. Agitation/Suicidal Ideation, acute - Medications revised as per psychiatry consult note - No active suicidal intent or gesture - No sitter required - Affect generally well composed - Although discharge was initially ordered for today, the Patient will be observed on new regimen until 08/15 and discharged to SNF at that time if clinically stable. 2. left nondisplaced periprosthetic proximal femur fracture, present prior to admission, stable - per ortho reports from last hospitalization "Nonoperative treatment involving protected weightbearing utilizing a toe-touch weightbearing program for approximately six weeks will likely yield a good outcome." - patient denies pain with active non weightbearing movement when last checked - Percocet 5-325mg available PRN - To continue physical therapy, to continue at [facility] 3. Diabetes mellitus type 2, chronic - Patient was treated as an outpatient with Metformin 1000 mg by mouth twice a day - To continue usual care 4. Hypertension, chronic - Atenolol 50 mg at night - Losartan 50mg at night 5. Hyperlipidemia, chronic - Atorvastatin 40 mg daily 6. GERD, chronic - Omeprazole 20 mg daily 7. anemia, likely chronic - Low MCV likely due to iron level of 31 with 11% saturation According to POLST form dated July 29, 2017 patient is DO NOT RESUSCITATE and comfort care measures only DPOA is jorge alberto Diamond, patient gives consent for discussion Bridger. Disposition: Patient was admitted for observation status. GI Prophylaxis: H2 rosalio VTE Prophylaxis: SCDs VTE Mechanical Devices: Intermittant Pneumatic CD Resuscitation Status: DNR/DNI:Do Not Resuscitate/Intubate Time spent 25 minutes Dustin Berry MD Aug 14, 2016 15:27
[2016-08-14 15:47] VITALS: BP 133/65; PULSE 77; RESP 16; O2SAT 96
--- NOTE | 2016-08-14 16:17 | NUR ---
Social Work: continued discharge Planning Data & Assessment: Rural Mail Contractor spoke with Marcia at [facility] who stated that per the facility's physician Dr. Rand they want the patient to be off of Haldol for twenty-four hours and overnight before they can take the patient back. SW notified Dr. anguiano and patient's charge nurse. Marcia stated that a new PASSR is not needed for the patient. [facility] will pick the patient up when she is ready for discharge. SW will continue to follow for discharge planning. Plan: Patient will likely discharge tomorrow once she has been off of the Haldol for 24-hours. SW will continue to follow. Rebekah Vanessa, MIKHAIL, BEVERLY
[2016-08-14 20:00] VITALS: BP 119/60; PULSE 82; RESP 16; O2SAT 95
[2016-08-15 04:37] VITALS: BP 95/49; PULSE 66; RESP 16; O2SAT 95
--- NOTE | 2016-08-15 07:26 | NUR ---
Behavior Pt remains confused. She attempts to get OOB with assistance and does not use call light appropriately, hence [place] alarm in use. Pt has unsteady gait. Pt was pleasant. No aggressive or belligerent behavior noted. VSS. Pt slept approx 5 hrs last night. No overt complications noted. Pt anticipating D/C to SNF this am if appropriate.
[2016-08-15] MEDS: Insulin LISPRO 300 Unit/3 mL Inj SUBQ SCH ×2 (08:00→12:00)
[2016-08-15] MEDS ORDERED: buPROPion SR 150 mg ER12 Tablet PO SCH (08:30)
[2016-08-15 09:07] VITALS: BP 124/70; PULSE 74; RESP 16; O2SAT 97
[2016-08-15] MEDS: oxyCODONE-Acetamin 5-325 mg Tablet PO PRN (10:28)
[2016-08-15] MEDS: ALPRAZolam 0.25 mg Tablet PO PRN (12:55)
--- NOTE | 2016-08-15 13:44 | NUR ---
Spoke with Marcia in admissions at [facility] and she is arranging transport. Pageivan AYON will need addendum for discharge date today. Updated LINE REPAIRER
--- NOTE | 2016-08-15 14:37 | NUR ---
Social Work Note: Discharge Data& Assessment: EMR reviewed. Kristen Klein is a 80 year old female under observation for dementia, left hip fracture, suicidal ideation. Per MD pt is medically improved and ready to discharge back to [facility] for continued rehab. Per psych MD recommendations, pt medications have been adjusted. Pt denies any current suicidal ideation and does not remember making any suicidal statements before. Pt behaviors are back to baseline and pt has not required Haldol for 24 hours. Marcia from [facility] has confirmed they are able to accept pt back today and is arranging transportation for pt. SW notified pt jorge alberto Diamond of discharge. No other discharge needs identified. All updated and agreeable to plan. Plan: Per MD pt is medically ready to discharge back to [facility] for continued rehab. Marcia from [facility] has confirmed they are able to accept pt back today and is arranging transportation for pt. No other discharge needs identified. All updated and agreeable to plan. RADHA Zarco Addendum: 08/15/16 at 1458 by DALE CURRAN Ericka from [facility] confirmed wheelchair van transportation is arranged to pick pt up at 4:30p.m. Pt RN notified of bulk picker time. RADHA Zarco
--- NOTE | 2016-08-15 16:46 | NUR ---
Discharge Pt discharged at 1640. She was given discharge information in a packet that would be taken with her to [facility]. Report was called to the nurse at [facility] at 1530. She left with a prescription for Percocet. She was picked up by [facility] cabulance.
== END 2016-08-15 16:40 ==
LOC: SED 17:26 → EDBD 17:26 → MOC 23:20
PROVIDERS: ADMIT Hospitalist; ATTEND Hospitalist
DX: R45.1 Restlessness and agitation (principal); R45.851 Suicidal ideations; F03.90 Unspecified dementia, unspecified severity, without behavioral disturbance, psychotic disturbance, mood disturbance, and anxiety; M97.02XS Periprosthetic fracture around internal prosthetic left hip joint, sequela; E11.9 Type 2 diabetes mellitus without complications; K21.9 Gastro-esophageal reflux disease without esophagitis
CPT/HCPCS: 36415; 80053; 81000; 82728; 83540; 83550; 84443; 85025; 85027; 96372; 97161; 99285; G0378; G0480; G8978; G8979; J1630; J1815

== ENCOUNTER 2016-10-21 14:05 | Emergency (ER) | payer MEDICARE, OTHER ==
[~2016-10-21] VITALS: Ht 162.6 cm; Wt 46.4 kg
[~2016-10-21 14:05] MED LIST changes: +ALPR0.254 PO; +BUPR150T8 PO; -BUPR300T52 PO; +Bupropion Hcl PO; +LACT1CAP67 PO; -QUET25TA PO; +QUET25TA73 PO; -SERT50TA9 PO
[2016-10-21 14:14] VITALS: BP 160/82; PULSE 76; RESP 20; O2SAT 99
[2016-10-21 14:22] VITALS: BP 174/71; PULSE 82; RESP 16; O2SAT 99
--- NOTE | 2016-10-21 14:23 | ED.REPORT ---
HPI-General Illness Date of Service Oct 21, 2016 ED Provider: Dagoberto Mobley DO Pt is an 80 y/o female w/ a hx of dementia, depression, anxiety, HTN, presenting to the ED via EMS from [facility] due to worsening behavior at her SNF today. The patient was initially living with her son who was having trouble controlling her and caring for her so she was sent to [facility] where she has been for about 3 months. She was sent here today because "they can't handle her ". She states she doesn't want to be at [facility] because she "didn't do anything". Notes sent here indicate she was combative and aggressive when staff tried to give her regular medications which she attribute to "being an ornery old lady". She has no medical complaints. Pt denies SI. She repeatedly states that she did not do anything to be placed at [facility] and has no idea why she is there. Nursing Notes Stated Complaint: BEHAVIORAL ISSUES Chief Complaint: General Complaint Nursing Notes Reviewed: Yes Allergies: Coded Allergies: No Known Allergies (Verified , 08/12/16) Scheduled ([Bupropion Hcl]) 75 MG TABLET 75 MG PO DAILY@2030 Atenolol (Atenolol) 50 Mg Tablet 50 MG PO QPM Atorvastatin Calcium (Atorvastatin Calcium) 40 Mg Tablet 40 MG PO DAILY Bupropion ER (Wellbutrin SR) 150 Mg Tablet.er 150 MG PO DAILY Donepezil (Donepezil) 5 Mg Tablet 5 MG PO DAILY Lactobacillus Combination No.4 (Probiotic) 1 Each Capsule 1 EACH PO DAILY Losartan Potassium (Losartan Potassium) 50 Mg Tablet 50 MG PO QPM Melatonin (Melatonin) 3 Mg Tablet 6 MG PO HS Metformin (Glucophage) 1,000 Mg Tablet 1,000 MG PO BID Omeprazole (Omeprazole) 20 Mg Capsule.dr 20 MG PO DAILY Quetiapine Fumarate (Quetiapine Fumarate) 25 Mg Tablet 25 MG PO HS Quetiapine Fumarate (Seroquel) 25 Mg Tablet 25 MG PO DAILYWL Quetiapine Fumarate (Seroquel) 25 Mg Tablet 25 MG PO HS Sulfamethoxazole/Trimeth 800-160 mg (Bactrim DS) 1 Each Tablet 1 TABLET PO BID Scheduled PRN Acetaminophen (Acetaminophen) 325 Mg Tablet 650 MG PO Q4H PRN PRN For Fever Alprazolam (Alprazolam) 0.25 Mg Tablet 0.25 MG PO Q4 PRN PRN For Anxiety or distress Docusate Sodium (Colace) 100 Mg Capsule 100 MG PO BID PRN PRN For Constipation Ondansetron ODT (Ondansetron ODT) 4 Mg Tab.rapdis 4 MG SL Q4H PRN PRN For Nausea /Vomiting oxyCODONE-Acetaminophen 5-325 mg (oxyCODONE-Acetaminophen 5-325 mg) 1 Each Tablet 1 TAB PO Q4H PRN PRN For Pain General Time Seen by MD: 14:20 Chief Complaint Other (behavior) Hx Obtained From: Patient, EMS Arrived By: Ambulance Sudden in Onset?: No Onset Occurred: 1 - 4 hours ago Symptom Duration: Since onset Severity: Current: No pain currently Severity: Maximum: No pain Recent Healthcare: Previous diagnosis Similar Sx Previous: Yes Past Medical History Past Medical History Notes: CODE STATUS: DNR, comfort measures only - per POL Admit July 10- for acute delirium & Left hip fracture, UTI > 100,000 Escherichia coli, pansensitive - treated, repeat UA 08/10/16 mixed kelsey Seen in ED 08/10/2016 for agitation and SI, seroquel increased Past Medical History Dementia bipolar (details unclear - on seroquel) Hypertension NIDDM Depression Anxiety Past Surgical History Bilat hip replacement Carotid endarterectomy Family History noncontributory Smoking History Never Smoker Social History Resides at [facility] form dated July 29 2016 indicates DNR and COMFORT CARE Alcohol Use: Denies alcohol use Drug Use: Denies drug use Other Social History: Good social support, Local resident Ambulatory Status Independent Review of Systems Full Review of Systems Constitutional: Denies: Chills, Fever Respiratory: Denies: Non-productive cough, Shortness of breath Cardiovascular: Denies: Chest pain, Dyspnea on exertion GI: Denies: Abdominal pain, Diarrhea, Nausea, Vomiting Neurologic: Denies: Change LOC, Confusion Psychiatric: Reports: Agitation, Hostile, Denies: Hallucinations, auditory, Hallucinations, visual, Homicidal ideation , Suicidal ideation Complete sys rev & neg: except as marked. Physical Exam Vital Signs Vital Signs Date Time Temp Pulse Resp B/P Pulse Ox O2 Delivery O2 Flow Rate FiO2 10/21/16 19:40 37 91 18 121/79 100 Room Air 10/21/16 14:22 36.4 82 16 174/71 99 10/21/16 14:14 36.0 76 20 160/82 99 Room Air Initial VS: Reviewed, Vital signs abnormal Head / Eyes: Atraumatic, Normocephalic, PERRL ENT: Mucous membranes moist, Conjunctiva normal, No scleral icterus Neck: Supple, Full range of motion Respiratory: Breath sounds normal, Clear to auscultation, No respiratory distress Cardiovascular: Regular rate & rhythm, Heart sounds normal, Intact distal pulses Abdomen / GI: Soft, Non-tender, No guarding, No rebound, No distention Skin: Warm, Dry, No cyanosis Neurologic: Alert, Oriented, Nonfocal General/Constitutional: Awake, Alert, No acute distress, Well appearing, Cooperative, Not toxic appearing Psychiatric: Affect NL, Mood NL, Not suicidal, Not homicidal, No hallucinations Interpretation & Diagnostics Lab Results Interpretation Result Diagram: 10/21/16 1548 10/21/16 1548 Test 10/21/16 00:00 10/21/16 15:15 10/21/16 15:48 Lactic Acid Level 1.1mmol/L (0.4-2.0) Urine Color Straw (YELLOW) Urine Appearance Hazy (CLEAR,HAZY) Urine pH 6.0 (5.0-8.0) Urine Specific [place] 1.005 (1.003-1.035) Urine Protein Negativemg/dL (NEG,TRACE) Urine Glucose (UA) Negativemg/dL (NEGATIVE) Urine Ketones Negativemg/dL (NEGATIVE) Urine Occult Blood Negative (NEGATIVE) Urine Nitrite Negative (NEGATIVE) Urine Bilirubin Negative (NEGATIVE) Urine Urobilinogen Normalmg/dL (NORMAL) Urine Leukocyte Esterase Trace (NEGATIVE) Urine RBC 0-2/hpf (0-2) Urine WBC 6-10/hpf (0-5) Urine Epithelial Cells Moderate/hpf (NONE-MOD) Urine Crystals None seen (NONE SEEN) Urine Bacteria Moderate/hpf (NONE-FEW) Urine Hyaline Casts None/lpf (NONE) Urine Granular Casts None seen (NONE SEEN) Urine Waxy Casts None seen (NONE SEEN) Urine Red Blood Cell Casts None seen (NONE SEEN) Urine White Blood Cell Casts None seen (NONE SEEN) Urine Mucus None seen (None Seen) Urine Trichomonas None seen (NONE SEEN) Urine Yeast None (NONE SEEN) Urinalysis Comment None Urine Culture Reflexed Indicated White Blood Count 7.3th/mm3 (3.8-10.1) Red Blood Count 4.49mil/mm3 (3.90-5.20) Hemoglobin 10.7g/dL (12.0-15.6) Hematocrit 34.9% (35.0-46.0) Mean Corpuscular Volume 77.7fL (81-100) Mean Corpuscular Hemoglobin 23.8pg (27.0-35.0) Mean Corpuscular Hemoglobin Concent 30.7% (32.0-37.0) Red Cell Distribution Width 16.0% (12.3-15.4) Platelet Count 284bil/L (150-400) Neutrophils (%) (Auto) 77.7% (40-74) Lymphocytes (%) (Auto) 14.1% (14-46) Monocytes (%) (Auto) 6.6% (4-12) Eosinophils (%) (Auto) 1.0% (0-5) Basophils (%) (Auto) 0.5% (0-3) Sodium Level 141mEq/L (134-144) Potassium Level 4.1mEq/L (3.5-5.2) Chloride Level 103mEq/L (97-108) Carbon Dioxide Level 24mmol/L (18-29) Blood Urea Nitrogen 12mg/dL (8-27) Creatinine 0.73mg/dL (0.57-1.00) Estimat Glomerular Filtration Rate 110mL/min (>59) Glucose Level 143mg/dL (60-99) Calcium Level 10.2mg/dL (8.5-10.1) Total Bilirubin 0.4mg/dL (0.0-1.2) Aspartate Amino Transf (AST/SGOT) 12U/L (0-50) Alanine Aminotransferase (ALT/SGPT) 9U/L (0-32) Alkaline Phosphatase 68U/L (25-165) Total Protein 7.4g/dL (6.4-8.4) Albumin 4.5g/dL (3.4-5.0) Thyroid Stimulating Hormone (TSH) 0.507uIU/mL (0.450-4.500) Hold Rudd Top Tube Received (Received) X-Ray Chest Interpretation Chest Xray Interpretation: IMPRESSION: 1. No acute cardiopulmonary disease. Dictated by: Carlito Cabral M.D. on 10/21/2016 at 17:12 Approved by: Carlito Cabral M.D. on 10/21/2016 at 17:13 View: Portable, 1 view Interpretation / Wet Read by: Interpret - Radiologist CT Head Interpretation IMPRESSION: 1. No acute intracranial abnormality. 2. Moderate chronic white matter small vessel ischemic changes and mild to moderate cerebral volume loss. Dictated by: Carlito Cabral M.D. on 10/21/2016 at 16:40 Approved by: Carlito Cabral M.D. on 10/21/2016 at 16:48 Study: Head CT no contrast Interpretation / Wet Read by: Interpret - Radiologist Re-Eval/Medical Decision Consultation : Note: spoke with RN at [facility] notified pt has uti and starting bactrim. I believe this is why patient has been acting beyond her baseline. RN requests night meds be given as well as first dose of Bactrim prior to sending back. They will accept patient Counseled Regarding: Diagnosis, Lab results, Need for follow-up, When/why to return to ED Discharge & Departure Primary Impression: UTI (urinary tract infection) Urinary tract infection type: site unspecified Hematuria presence: without hematuria Qualified Code: N39.0 - Urinary tract infection, site not specified Additional Impression: Acute situational disturbance Disposition: Home Discharge Condition All VS Reviewed: Yes Condition: Stable Patient Instructions: Urinary Tract Infection in Women (ED) Additional Instructions: ER evaluation today included interview, physical exam, lab work, head CT, chest x-ray, and UA. All these findings were negative except UA. Signs of sepsis on vitals and lactic acid is normal. Urinalysis today showed signs of urinary tract infection. I believe this is the cause of increased agitation and uncooperativeness taking medications Take Bactrim DS twice a day for one week. All night medications were given prior to sending [facility] including atenolol, losartan, metformin, Seroquel, Ativan, bupropion, melatonin, and atorvastatin as requested by her nurse Return to the ER for new or worsening symptoms Referrals: Corona Sandoval MD (PCP) Scribe Attestation Portions of this note were transcribed by Tree Lopez. I, Dr. Mobley personally performed the history, physical exam and medical decision-making; I reviewed and confirmed the accuracy of the information in the transcribed note. Signed by Shun Calero, 10/21/16 - 1500 copies to: Corona Sandoval MD, Gary R DO Oct 21, 2016 14:23 TREE LOPEZ Oct 21, 2016 14:46
[2016-10-21] MEDS ORDERED: ACET325T51 PO (15:03)
[2016-10-21] MEDS ORDERED: MELA3TAB35 PO (15:04)
[2016-10-21] MEDS ORDERED: QUET25TA PO ×2 (15:05→15:06)
[2016-10-21 16:00] LABS: BASOPHILS % (AUTO) 0.5 % (0-3); MONOCYTES % (AUTO) 6.6 % (4-12); Mean Corpuscular Hemoglobin 23.8 pg (27.0-35.0); Mean Corpuscular Volume 77.7 fL (81-100); NEUTROPHILS % (AUTO) 77.7 % (40-74); Platelet Count 284 bil/L (150-400)
[2016-10-21 16:42] LABS: APPEARANCE,URINE HAZY (CLEAR,HAZY); COLOR,URINE STRAW (YELLOW); OCCULT BLOOD,URINE NEGATIVE (NEGATIVE)
[2016-10-21 16:43] LABS: UROBILINOGEN,URINE NORMAL (NORMAL)
--- NOTE | 2016-10-21 16:50 | DRSVH ---
PROCEDURE: CT BRAIN WITHOUT CONTRAST ([id number]) INDICATIONS: ams, agitation, confusion TECHNIQUE: Noncontrast 4.5 mm thick angled axial sections acquired from the foramen magnum to the vertex, with c oronal reformats. COMPARISON: [facility], CT, CT BRAIN WO CON, 07/23/2016, 15:52. FINDINGS: Image quality: Excellent. CSF spaces: Basal cisterns are patent. No extra-axial fluid collections. The ventricles are symmet sarai in size and shape. There is oxfc-gi-[id number] cerebral volume loss, with resultant ventricular an d sulcal prominence. Brain: No intracranial hemorrhage, mass, or mass effect. There are subcortical, periventricular and deep white matter hypodensities consistent with moderate chronic small vessel ischemic changes. The re is intracranial internal carotid artery atherosclerosis. Skull and face: Calvarium and visualized facial bones appear intact, without suspicious lesions. Sinuses: Visualized sinuses and mastoids are clear. IMPRESSION: 1. No acute intracranial abnormality. 2. Moderate chronic white matter small vessel ischemic changes and mild to moderate cerebral volume loss. Dictated by: Carlito Cabral M.D. on 10/21/2016 at 16:40 Approved by: Carlito Cabral M.D. on 10/21/2016 at 16:48
--- NOTE | 2016-10-21 17:15 | DRSVH ---
PROCEDURE: X-RAY CHEST ONE VIEW, PORTABLE ([id number]) INDICATIONS: ams, agitation, confusion TECHNIQUE: One view of the chest was acquired. COMPARISON: [facility], CR, XR CHEST 1VW (PORTABLE), 08/10/2016, 13:47. FINDINGS: Surgical changes and devices: None. Lungs and pleura: No pleural effusions or pneumothorax. Lungs are clear. Mediastinum: Mediastinal contours appear normal. Heart size is normal. Bones and chest wall: No suspicious bony lesions. Overlying soft tissues appear unremarkable. IMPRESSION: 1. No acute cardiopulmonary disease. Dictated by: Carlito Cabral M.D. on 10/21/2016 at 17:12 Approved by: Carlito Cabral M.D. on 10/21/2016 at 17:13
[2016-10-21] MEDS ORDERED: Trimethoprim-Sulfa 160 mg-800 mg Tablet PO ONE (18:20)
[2016-10-21] MEDS ORDERED: LORazepam 0.5 mg Tablet PO ONE (18:40)
[2016-10-21] MEDS ORDERED: SULF1TAB7 PO (18:43)
[2016-10-21 19:40] VITALS: BP 121/79; PULSE 91; RESP 18; O2SAT 100
== END 2016-10-21 19:44 | disposition home or self-care (01) ==
LOC: SED 14:05 → EDBD 14:05 → SED 19:44
DX: N39.0 Urinary tract infection, site not specified (principal); F43.0 Acute stress reaction; I10 Essential (primary) hypertension; E11.9 Type 2 diabetes mellitus without complications; F03.91 Unspecified dementia, unspecified severity, with behavioral disturbance; Z86.79 Personal history of other diseases of the circulatory system; Z96.643 Presence of artificial hip joint, bilateral; Z79.84 Long term (current) use of oral hypoglycemic drugs

== ENCOUNTER 2016-10-30 13:42 | Emergency (ER) | payer MEDICARE, OTHER ==
[~2016-10-30 13:42] MED LIST changes: +ACET325T51 PO; +MELA3TAB35 PO; +QUET25TA PO; +SULF1TAB7 PO
[2016-10-30 13:56] VITALS: BP 169/64; PULSE 99; RESP 18; O2SAT 99
--- NOTE | 2016-10-30 14:00 | ED.REPORT ---
HPI-General Illness Date of Service Oct 30, 2016 ED Provider: The patient is an 80 year old female with history of dementia, bipolar, hypertension, and diabetes mellitus, who was brought to the emergency department by EMS for agitation. She was given 100 mg ketamine by medics. She is unable to provide any history at this time but does appear comfortably. She was recently seen on 10/21, diagnosed with a UTI and started on Bactrim. She completed this medication on 10/28. She had a hip fracture in July of this year and s currently at [facility]. Nursing Notes Stated Complaint: CONFUSED Chief Complaint: General Complaint Nursing Notes Reviewed: Yes Allergies: Coded Allergies: No Known Allergies (Verified , 08/12/16) Scheduled ([Bupropion Hcl]) 75 MG TABLET 75 MG PO DAILY@2030 Atenolol (Atenolol) 50 Mg Tablet 50 MG PO QPM Atorvastatin Calcium (Atorvastatin Calcium) 40 Mg Tablet 40 MG PO DAILY Bupropion ER (Wellbutrin SR) 150 Mg Tablet.er 150 MG PO DAILY Donepezil (Donepezil) 5 Mg Tablet 5 MG PO DAILY Lactobacillus Combination No.4 (Probiotic) 1 Each Capsule 1 EACH PO DAILY Losartan Potassium (Losartan Potassium) 50 Mg Tablet 50 MG PO QPM Melatonin (Melatonin) 3 Mg Tablet 6 MG PO HS Metformin (Glucophage) 1,000 Mg Tablet 1,000 MG PO BID Omeprazole (Omeprazole) 20 Mg Capsule.dr 20 MG PO DAILY Quetiapine Fumarate (Quetiapine Fumarate) 25 Mg Tablet 25 MG PO HS Quetiapine Fumarate (Seroquel) 25 Mg Tablet 25 MG PO DAILYWL Quetiapine Fumarate (Seroquel) 25 Mg Tablet 25 MG PO HS Sulfamethoxazole/Trimeth 800-160 mg (Bactrim DS) 1 Each Tablet 1 TABLET PO BID Scheduled PRN Acetaminophen (Acetaminophen) 325 Mg Tablet 650 MG PO Q4H PRN PRN For Fever Alprazolam (Alprazolam) 0.25 Mg Tablet 0.25 MG PO Q4 PRN PRN For Anxiety or distress Docusate Sodium (Colace) 100 Mg Capsule 100 MG PO BID PRN PRN For Constipation Ondansetron ODT (Ondansetron ODT) 4 Mg Tab.rapdis 4 MG SL Q4H PRN PRN For Nausea /Vomiting oxyCODONE-Acetaminophen 5-325 mg (oxyCODONE-Acetaminophen 5-325 mg) 1 Each Tablet 1 TAB PO Q4H PRN PRN For Pain General Time Seen by MD: 13:59 Chief Complaint Altered mental status Hx Obtained From: Patient, EMS Arrived By: Ambulance Sudden in Onset?: No Onset Occurred: 1 - 4 hours ago Symptom Duration: 1 - 4 hours Severity: Current: No pain currently Severity: Maximum: No pain Recent Healthcare: No recent hospitalization, Recent doctor visit Similar Sx Previous: Yes Past Medical History Past Medical History Notes: CODE STATUS: DNR, comfort measures only - per POLST Past Medical History Dementia bipolar (details unclear - on seroquel) Hypertension NIDDM Depression Anxiety Past Surgical History Bilat hip replacement Carotid endarterectomy Family History noncontributory Smoking History Never Smoker Social History Resides at [facility] form dated July 29 2016 indicates DNR and COMFORT CARE Alcohol Use: Denies alcohol use Drug Use: Denies drug use Other Social History: Good social support, Local resident Ambulatory Status Independent Review of Systems Unable to Obtain ROS Patient condition, Mental status Full Review of Systems Psychiatric: Reports: Agitation Physical Exam Vital Signs Vital Signs Date Time Temp Pulse Resp B/P Pulse Ox O2 Delivery O2 Flow Rate FiO2 10/30/16 13:56 35.8 99 18 169/64 99 Initial VS: Reviewed Head / Eyes: Atraumatic, Normocephalic, PERRL ENT: Mucous membranes moist, Conjunctiva normal, No scleral icterus Neck: Supple, Non-tender, Full range of motion Respiratory: Breath sounds normal, Clear to auscultation, No respiratory distress Cardiovascular: Regular rate & rhythm, Heart sounds normal, Intact distal pulses Extremities: No swelling Skin: Warm, Dry, No cyanosis General/Constitutional: Awake, Well hydrated Alertness: Positive: Sedated Thin Abdomen: Soft No pain behavior with palpation of her abdomen Lower Extremity / Pelvis / MS: Neurologic intact, Vascular intact Old bruises over lower extremities Interpretation & Diagnostics Lab Results Interpretation Result Diagram: 10/30/16 1311 10/30/16 1311 Test 10/30/16 13:10 10/30/16 13:11 Urine Color Yellow (YELLOW) Urine Appearance Hazy (CLEAR,HAZY) Urine pH 5.5 (5.0-8.0) Urine Specific [place] 1.020 (1.003-1.035) Urine Protein Negativemg/dL (NEG,TRACE) Urine Glucose (UA) Negativemg/dL (NEGATIVE) Urine Ketones Negativemg/dL (NEGATIVE) Urine Occult Blood Negative (NEGATIVE) Urine Nitrite Negative (NEGATIVE) Urine Bilirubin Negative (NEGATIVE) Urine Urobilinogen Normalmg/dL (NORMAL) Urine Leukocyte Esterase Negative (NEGATIVE) White Blood Count 7.1th/mm3 (3.8-10.1) Red Blood Count 4.23mil/mm3 (3.90-5.20) Hemoglobin 10.1g/dL (12.0-15.6) Hematocrit 33.1% (35.0-46.0) Mean Corpuscular Volume 78.3fL (81-100) Mean Corpuscular Hemoglobin 23.9pg (27.0-35.0) Mean Corpuscular Hemoglobin Concent 30.5% (32.0-37.0) Red Cell Distribution Width 17.2% (12.3-15.4) Platelet Count 334bil/L (150-400) Neutrophils (%) (Auto) 58.0% (40-74) Lymphocytes (%) (Auto) 31.1% (14-46) Monocytes (%) (Auto) 8.1% (4-12) Eosinophils (%) (Auto) 1.7% (0-5) Basophils (%) (Auto) 1.0% (0-3) Sodium Level 138mEq/L (134-144) Potassium Level 4.2mEq/L (3.5-5.2) Chloride Level 98mEq/L (97-108) Carbon Dioxide Level 21mmol/L (18-29) Blood Urea Nitrogen 17mg/dL (8-27) Creatinine 0.99mg/dL (0.57-1.00) Estimat Glomerular Filtration Rate 77mL/min (>59) Glucose Level 150mg/dL (60-99) Calcium Level 10.1mg/dL (8.5-10.1) Total Bilirubin 0.2mg/dL (0.0-1.2) Aspartate Amino Transf (AST/SGOT) 14U/L (0-50) Alanine Aminotransferase (ALT/SGPT) 10U/L (0-32) Alkaline Phosphatase 66U/L (25-165) Total Protein 7.4g/dL (6.4-8.4) Albumin 4.5g/dL (3.4-5.0) Re-Eval/Medical Decision Source of Hx: Old records, EMS Counseled Regarding: Diagnosis, Lab results Discharge & Departure Shift Change Sign-Out Patient Care Transferred: Yes Discussed Complaint(s): Yes Laboratory Evaluation: Ordered, not yet done Imaging Studies: Ordered, not yet done Response to Therapy: Improved, Discussed Significant agitation at the half-way. Combative enough that I am ketamine was used by medics. Has recently been treated for UTI. Urine was obtained. All labs are ordered number yet back. Care is turned to Dr. Johnson. Patient is comfort care only Primary Impression: Agitation Discharge Condition All VS Reviewed: Yes Condition: Stable Referrals: Corona Sandoval MD (PCP) Care Transferred to: Dr. Johnson Care Transferred at: 15:01 Scribe Attestation Portions of this note were transcribed by Amaya Kelley. I, Dr. Wang personally performed the history, physical exam and medical decision-making; I reviewed and confirmed the accuracy of the information in the transcribed note. Signed by: Shun Sauer, 10/30/2016 at 1500. copies to: Corona Sandoval MD, Shawna L MD Oct 30, 2016 14:00 Amaya Kelley Oct 30, 2016 14:07
[2016-10-30 14:26] LABS: APPEARANCE,URINE HAZY (CLEAR,HAZY); COLOR,URINE YELLOW (YELLOW); OCCULT BLOOD,URINE NEGATIVE (NEGATIVE); PH,URINE 5.5 (5.0-8.0); UROBILINOGEN,URINE NORMAL (NORMAL)
[2016-10-30 14:27] LABS: EOSINOPHILS % (AUTO) 1.7 % (0-5); MONOCYTES % (AUTO) 8.1 % (4-12); Mean Corpuscular Hemoglobin 23.9 pg (27.0-35.0); Mean Corpuscular Volume 78.3 fL (81-100); Platelet Count 334 bil/L (150-400)
[2016-10-30 15:01] LABS: TROPONIN T < 0.010 ug/L (0.0-0.011)
--- NOTE | 2016-10-30 15:41 | DRSVH ---
PROCEDURE: X-RAY CHEST ONE VIEW, PORTABLE ([id number]) INDICATIONS: altered mental status TECHNIQUE: One view of the chest was acquired. COMPARISON: [facility], CR, XR CHEST 1VW (PORTABLE), 10/21/2016, 15:31. [facility], CR, XR CHEST 1VW (PORTABLE), 08/10/2016, 13:47. [facility], CR, XR CHEST 1VW (POR TABLE), 07/25/2016, 11:05. [facility], CR, CHEST 1VW (PORTABLE), 08/01/2014, 11:22. FINDINGS: Surgical changes and devices: None. Lungs and pleura: Aeration of the lungs is similar to the previous exam with elevation of the right d iaphragm. No focal consolidation, effusion, or pneumothorax is evident. Mediastinum: Mediastinal contours appear normal. Heart size is normal. There is aortic atheroscler osis. Bones and chest wall: No suspicious bony lesions. The bone mineralization is diffusely decreased. Degenerative changes of the imaged spine are noted. Overlying soft tissues appear unremarkable. IMPRESSION: Stable chest. No acute cardiopulmonary process is evident. Dictated by: Arjun Madera M.D. on 10/30/2016 at 14:38 Approved by: Arjun Madera M.D. on 10/30/2016 at 14:39
[2016-10-30 15:44] VITALS: BP 116/44
[2016-10-30] MEDS ORDERED: 0.9% Sodium Chloride 250 ML IV ONE (16:05)
[2016-10-30 17:53] VITALS: BP 152/84; PULSE 99; RESP 16; O2SAT 100
[2016-10-30] MEDS ORDERED: BUPR300T51 PO (21:43)
[2016-10-30] MEDS ORDERED: QUET25TA73 PO (21:43)
== END 2016-10-30 17:58 | disposition home or self-care (01) ==
LOC: EDUNIT# 13:42 → EDBD 13:42 → SED 13:42
DX: R45.1 Restlessness and agitation (principal); I10 Essential (primary) hypertension; F31.9 Bipolar disorder, unspecified; F03.90 Unspecified dementia, unspecified severity, without behavioral disturbance, psychotic disturbance, mood disturbance, and anxiety; E11.9 Type 2 diabetes mellitus without complications; Z79.4 Long term (current) use of insulin; Z79.84 Long term (current) use of oral hypoglycemic drugs
CPT/HCPCS: 36415; 71010; 80053; 81000; 84145; 84484; 85025; 90791; 99284; G0480

== ENCOUNTER 2016-10-30 20:04 | Observation (INO) | payer MEDICARE, OTHER ==
[~2016-10-30] VITALS: Ht 162.6 cm; Wt 46.1 kg
[2016-10-30 20:13] VITALS: BP 138/82; PULSE 102; RESP 16; O2SAT 95
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
--- NOTE | 2016-10-30 21:19 | DRSVH ---
PROCEDURE: CT BRAIN WITHOUT CONTRAST ([id number]) INDICATIONS: Altered LOC TECHNIQUE: Noncontrast 4.5 mm thick angled axial sections acquired from the foramen magnum to the vertex, with c oronal reformats. COMPARISON: [facility], CT, CT BRAIN WO CON, 10/21/2016, 16:08. FINDINGS: Image quality: Excellent. CSF spaces: Basal cisterns are patent. No extra-axial fluid collections. The ventricles are symmet sarai in size and shape. Brain: No intracranial bleeds or masses. There is cerebral volume loss for age, with resultant vent ricular and sulcal prominence. There are periventricular and deep white matter chronic small vessel ischemic changes. There is intracranial internal carotid artery atherosclerosis. Skull and face: Calvarium and visualized facial bones appear intact, without suspicious lesions. Sinuses: Visualized sinuses and mastoids are clear. IMPRESSION: No acute intracranial abnormality. No change since the previous CT of 10/21/16. Moderate atrophy and microvascular ischemic change of aging. Dictated by: Lobo Ortiz M.D. on 10/30/2016 at 21:12 Approved by: Lobo Ortiz M.D. on 10/30/2016 at 21:18
[2016-10-30] MEDS ORDERED: BUPR300T51 PO (21:43)
[2016-10-30] MEDS ORDERED: QUET25TA73 PO (21:43)
[2016-10-30] MEDS ORDERED: Ondansetron 2 mg/mL 2 mL Inj IVPUSH PRN (21:50)
[2016-10-30] MEDS ORDERED: Alum-Mag Hydrox-Simeth 30 mL Suspension PO PRN (21:50)
[2016-10-30] MEDS ORDERED: Polyethylene Glycol (PEG) 17 Gm Powder PO PRN (21:50)
[2016-10-30 22:11] VITALS: BP 168/83; PULSE 98; O2SAT 99
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
--- NOTE | 2016-10-31 00:15 | NUR ---
ADMIT Pt arrived on unit #[id number] from ED via Soma bed at apprx 2200. Bed locked, low position. Pt refusing to wear gown. Agreed to using warm blanket to cover self up. Pt combative refusing vitals or physical assessment. No allergies or skin issues. Sitter at bedside. Frequent rounding in place.
[2016-10-31] MEDS ORDERED: ALPRAZolam 0.25 mg Tablet PO PRN (01:15)
[2016-10-31] MEDS ORDERED: oxyCODONE-Acetamin 5-325 mg Tablet PO PRN (01:15)
--- NOTE | 2016-10-31 06:29 | NUR ---
AGITATED Pt confused and agitated. Refused Vital signs, physical assessment, or complete skin check. Pt upset about having, "dementia" stating, "If I had a gun I would shoot myself. When I get out of here I'm going to buy a gun." Pt teary, crying at times stating, "why won't you let me out of here." Pt in Soma bed with sitter at bedside. Will continue to monitor.
[2016-10-31 06:56] VITALS: BP 156/81; PULSE 93; RESP 18; O2SAT 93
[2016-10-31] MEDS: Pantoprazole 20 mg ER24 Tablet PO SCH (07:30)
[2016-10-31] MEDS ORDERED: Non-Formulary Medication (Metformin (Glucophage) 1,000 MG) PO SCH (08:00)
--- NOTE | 2016-10-31 09:01 | NUR ---
confused pt confused and asking why she is here? Why us she being treated like an animal? And can she go to heaven with the lord and why do we want her to live. This RN spent approximately 30 mins orienting and explaining to pt our goals as the healthcare team. pt seemed to settle down after some explanation and allowed this RN to give her morning medications.
[2016-10-31 10:18] LABS: EOSINOPHILS % (AUTO) 2.5 % (0-5); MONOCYTES % (AUTO) 6.8 % (4-12); Mean Corpuscular Hemoglobin 23.8 pg (27.0-35.0); Mean Corpuscular Volume 77.8 fL (81-100); NEUTROPHILS % (AUTO) 65.6 % (40-74); Platelet Count 316 bil/L (150-400)
--- NOTE | 2016-10-31 13:30 | NUR ---
Discontinue Soma Bed Soma bed was discontinued at 1310. Pt. was transferred from [facility] 3003 to 3019. Reoriented pt. in her new room. Tribune bed alarm set up. Call light within reach. Pt. ambulated in the hallway once without any assistive device; SBA and occasional redirection needed. Pt. ate 100% lunch.
--- NOTE | 2016-10-31 15:18 | NUR ---
Case Management: Left for HERRERA, son named Lobo. [phone]. requested cb. CPerrKristin.
[2016-10-31] MEDS ORDERED: LORazepam 0.5 mg Tablet PO PRN (15:20)
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
--- NOTE | 2016-10-31 15:42 | NUR ---
Social Work-initial assessment: Data& assessment:See initial assessment. Pt is a 80 y/o female who was admitted on 10/30/16 for dementia with agitation per H&P. Pt's insurance is [facility] [employer] and PCP is Corona Sandoval MD. EMR reviewed. Pt admitted from [facility] due to aggressive behavior. Pt was seen in ED and referrals made to [facility] and [facility]. YOKO spoke with Marcia at [facility]. Pt uses a fww and does not drive. Pt has no HH history,but has been at [facility]. Pt has no jail care insurance or VA benefits. YOKO asked [facility] to fax over copy of DPOA/ advanced directive, SW obtained this and placed in the chart. YOKO placed a call to Nicholas Diamond [phone] and left message requesting a return call to discuss further. Per EDMSW note, son had agreed to [facility] and he is confirmed DPOA. YOKO spoke with pt this morning at bedside. Pt is aware that she is at [facility], does not know the year, and knows the president is the morenita after Maureen. Pt states she is not sure how she is feeling. Pt denies any current thoughts of suicide or having these thoughts recently. Pt denies any thoughts of harming anyone else. YOKO placed a call to [facility] who states they do not take pt's on a voluntary or DPOA signing pt in. They would only take pt if she was on a 14 day hold. YOKO spoke with Julissa at [facility] P: [phone] option 2, who states their MD has reviewed clinicals and they would be willing to accept pt. YOKO explained that pt just was taken out of a [facility] bed this afternoon. Julissa states that pt would need to be at least 24 hours free of any restraints before they would consider admission. Julissa would like updated clinicals faxed to [phone] tomorrow including DPOA paperwork. Julissa states that DPOA would not need to come down with pt, but would need to be able to fill out paperwork and fax this to them. to place Psychiatry consult for assistance with medications and also to assist with cognitive assessment. YOKO called over to [facility] and provided update with SW working on geropsych for pt. [facility] to pass information along to psychiatrist. YOKO spoke with Marcia in admissions at [facility] and provided her with update on three options listed below. Marcia confirms that they would be able to accept pt back after any of these options. Options for pt are as follows. 1. If pt is able to remain restraint free then [facility] would be able to accept pt with son- Lobo HANNAH signing pt in voluntarily( message has been left with son to discuss further) 2. If pt continues to be unable to remain restraint free and have behaviors, SW team may consider [facility] for detainment for [facility]. 3. Pt would remain at [facility] for stabilization and then return to [facility]. YOKO will continue to follow. Plan: SW to follow up with [facility] tomorrow(P:[phone] option 2) and fax updated clinicals to [phone] for review. They have accepted pt, but want to see notes without restraints. SW also awaiting a return call from nicholas Diamond. [facility] Psychiatry is also pending. SW will continue to follow. RADHA Gonzalez Addendum: 10/31/16 at 1602 by NEIL PUENTE SS Amended: Links added. Addendum: 10/31/16 at 1620 by NEIL PUENTE SS SW received a call back from pt's son Lobo. SW provided update to Lobo on his mother. SW explained about [facility] and he is still in agreement with plan. YOKO explained that Lobo would need to sign pt in and be able to complete paperwork. Son confirms he does not have access to Fax machine, but would be able to come to hospital and complete paperwork anytime. Lobo works at [employer] in [employer] from 8-4, but can come during the day if needed to complete paperwork. YOKO also explained alternative options in note and son is agreeable. YOKO provided phone number to son. Son will need to be kept posted on plan and is available to come in an complete paperwork. YOKO will continue to follow. RADHA Gonzalez
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
[2016-10-31 19:30] VITALS: BP 101/56; PULSE 70; RESP 16; O2SAT 96
[2016-10-31] MEDS ORDERED: risperiDONE 1 mg Tablet PO SCH ×2 (20:30→21:00)
[2016-10-31] MEDS ORDERED: Divalproex (QD) 250 mg ER24 Tablet PO SCH (21:00)
[2016-10-31 21:22] VITALS: BP 111/64; PULSE 88
[2016-11-01 05:49] VITALS: BP 96/55; PULSE 72; RESP 16; O2SAT 95
--- NOTE | 2016-11-01 05:50 | NUR ---
mentation/Restful light pt A&O to self, date , place this morning, but she doesn't know the year state "19--- I don't remember." pt calm and very pleasant this morning. pt has been sleeping most of the shift. will continue to monitor.
[2016-11-01 06:41] LABS: BASOPHILS % (AUTO) 0.8 % (0-3); EOSINOPHILS % (AUTO) 2.9 % (0-5); MONOCYTES % (AUTO) 7.7 % (4-12); Mean Corpuscular Hemoglobin 23.7 pg (27.0-35.0); Mean Corpuscular Volume 78.6 fL (81-100); NEUTROPHILS % (AUTO) 60.3 % (40-74); Platelet Count 285 bil/L (150-400)
[2016-11-01] MEDS: Pantoprazole 20 mg ER24 Tablet PO SCH (07:52)
[2016-11-01] MEDS ORDERED: buPROPion XL 300 mg ER24 Tablet PO SCH (08:30)
--- NOTE | 2016-11-01 10:36 | NUR ---
Social Work: Readiness for d/c Data: pt is on day 2 of hospitalization. EMR reviewed, pt discussed in rounds. MD states pt medically ready for d/c today. CORNCOB PIPES ASSEMBLER called [facility] and updated them that pt has been free of soma bed since 10/31 at 1pm and that she had a good night per RN notes. CORNCOB PIPES ASSEMBLER faxed over updated clinicals to them, they state their MD will review and they will get back to [employer]NCO[employer] PIPES ASSEMBLER. CORNCOB PIPES ASSEMBLER will continue to follow. Assessment: Pt from SNF. Plan: Pt will d/c to [facility] pending review of their MD today via BLS. CORNCOB PIPES ASSEMBLER will continue to follow. RADHA Correia
--- NOTE | 2016-11-01 10:59 | NUR ---
LOC Patient is alert and oriented to self, place and day, but not year. Patient cooperative with care. Patient has been slightly tearful wishing her support group from [employer] would visit. Patient is in bed resting.
[2016-11-01 12:39] VITALS: BP 104/65; PULSE 66; RESP 16; O2SAT 98
--- NOTE | 2016-11-01 13:46 | PCM.DIMED ---
Discharge Instructions Date of Service Nov 01, 2016 Dates of Hospitalization Oct 30, 2016 at 22:12 Discharge Diagnosis Discharge Diagnosis 1. Acute major neurocognitative disorder, present on admission. Active. 2. Anemia, likely chronic, present on admission. Active. 3. Chronic diabetes mellitus type 2, present on admission. Presumed stable. 4. Chronic hypertension, present on admission. Presumed stable. 5. Chronic hyperlipidemia, present on admission. Presumed stable. 6. Chronic GERD, present on admission. Presumed stable Diet Low fat, Low Sodium Activity No restrictions Patient Instructions Follow-up plan Patient will be followed at the facility she is at by assigned doctor Follow-up with PCP in: 1 week Gia Ricardo MD Nov 01, 2016 13:46
[2016-11-01] MEDS ORDERED: DONE5TAB4 PO (13:56)
[2016-11-01] MEDS ORDERED: RISP1TAB90 PO (13:56)
[2016-11-01] MEDS ORDERED: DIVA250T12 PO (13:56)
[2016-11-01] MEDS ORDERED: LORA-302 PO (13:56)
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
--- NOTE | 2016-11-01 15:03 | NUR ---
Social Work-discharge: Data:EMR Reviewed. Pt is on day 2 of hospitalization for dementia. Pt is medically stable for discharge at this time. Psychiatry also saw pt and recommending in geropsych. Y[facility]O spoke with Liset at [facility] who states they are ready to accept the pt with Dr. Ritu Velazquez to follow. Liset confirms that pt is fine to discharge and then fax paperwork that is filled out by son afterwards. YOKO faxed discharge orders to [phone] including DPOA paperwork. supervisor blueprinting and photocopy has arranged S transport for 1620. YOKO spoke with son Lobo who continues to be in agreement with plan. Lobo came in and completed paperwork, SW provided son with a copy, and placed a copy in the chart. SW faxed copy to [facility] and placed original copy in the packet. [facility]OKO updated psychiatry, bedside RN, [facility], son, and [facility] [place] on discharge and time. All updated and agreeable to plan. Assessment;Pt who would benefit from [facility]. Plan:Pt to discharge to [facility] today via [facility] 1620. Pt's son has completed paperwork and YOKO has faxed paperwork and discharge information to [facility], originals placed in the chart. [facility] ready to accept pt this evening. All updated and agreeable to plan. RADHA Gonzalez
== END 2016-11-01 16:06 ==
LOC: SED 20:04 → EDUNIT# 20:04 → EDBD 20:04 → MPC 22:12
PROVIDERS: ADMIT Internal Medicine; ATTEND Internal Medicine
DX: F01.51 Vascular dementia, unspecified severity, with behavioral disturbance (principal); F03.91 Unspecified dementia, unspecified severity, with behavioral disturbance; D64.9 Anemia, unspecified; E11.9 Type 2 diabetes mellitus without complications; F31.60 Bipolar disorder, current episode mixed, unspecified; Z66 Do not resuscitate; I10 Essential (primary) hypertension; Z96.643 Presence of artificial hip joint, bilateral; Z51.5 Encounter for palliative care; E78.5 Hyperlipidemia, unspecified; K21.9 Gastro-esophageal reflux disease without esophagitis; F41.9 Anxiety disorder, unspecified; Z87.440 Personal history of urinary (tract) infections; Z79.84 Long term (current) use of oral hypoglycemic drugs
CPT/HCPCS: 36415; 70450; 71010; 80053; 81000; 83036; 83880; 84145; 84484; 85025; 90791; 99284; 99285; G0378; G0480; J1650